=== PATIENT | female | born 1940 | race Caucasian/White ===

== ENCOUNTER 2016-11-03 14:16 | Inpatient (IN) | payer OTHER ==
[2016-11-03] MEDS ORDERED: HumuLIN R SUBCUT PRN (16:58)
[2016-11-03 17:31] LABS: BASOPHILS # (AUTO) 0.1 X10^3/uL (0.0-0.1); BASOPHILS % (AUTO) 0.9 % (0.2-1.0); EOSINOPHILS # (AUTO) 0.4 x10^3/uL (0.0-0.2); EOSINOPHILS % (AUTO) 4.2 % (0.9-2.9); HEMATOCRIT 37.3 % (36.0-47.0); HEMOGLOBIN 12.7 g/dL (12.0-16.0); LYMPHOCYTES # (AUTO) 2.2 X10^3/uL (1.3-2.9); LYMPHOCYTES % (AUTO) 22.7 % (21.0-51.0); MEAN CORPUSCULAR HEMOGLOBIN 30.1 pg (27.0-34.0); MEAN CORPUSCULAR HGB CONC 34.1 g/dL (33.0-35.0); MEAN CORPUSCULAR VOLUME 88.3 fL (80.0-100.0); MEAN PLATELET VOLUME 9.3 fL (7.4-11.0); MONOCYTES # (AUTO) 0.8 x10^3/uL (0.3-0.8); MONOCYTES % (AUTO) 8.1 % (0.0-13.0); NEUTROPHILS # (AUTO) 6.2 x10^3/uL (2.2-4.8); NEUTROPHILS % (AUTO) 64.1 % (42.0-75.0); PLATELET COUNT 223 X10^3/uL (150.0-450.0); RED BLOOD COUNT 4.23 X10^6/uL (3.5-5.4); RED CELL DISTRIBUTION WIDTH 13.4 % (11.6-16.5); WHITE BLOOD COUNT 9.7 X10^3/uL (3.6-10.0)
[2016-11-03 17:47] LABS: BILIRUBIN,URINE NEGATIVE (NEGATIVE); BLOOD/HEMOGLOBIN,URINE 1+ (NEGATIVE); GLUCOSE, URINE NEGATIVE (NEGATIVE); KETONES,URINE 1+ (NEGATIVE); LEUKOCYTE ESTERASE ,URINE 2+ (NEGATIVE); NITRITES,URINE NEGATIVE (NEGATIVE); PROTEIN,URINE 1+ (NEGATIVE); UROBILINOGEN,URINE NORMAL (NORMAL)
[2016-11-03 17:51] LABS: BLOOD UREA NITROGEN 41 mg/dL (7-18); CALCIUM 8.8 mg/dL (8.5-10.1); CARBON DIOXIDE 26.9 mmol/L (21-32); CHLORIDE 103 mmol/L (98-107); COR NA(FOR HYPERGLY) 139 mmol/L (136-145); CREATININE 1.33 mg/dL (0.55-1.02); GLUCOSE 168 mg/dL (65-99); SODIUM 137 mmol/L (136-145); TROPONIN I < 0.02 ng/mL (0-1.5); eGFR BLACK RACES 50 (>60); eGFR NON BLACK RACES 41 (>60)
[2016-11-03 17:55] LABS: ALANINE AMINOTRANSFERASE 24 Units/L (12-78); ALBUMIN 3.4 g/dL (3.4-5.0); ALKALINE PHOSPHATASE 75 Units/L (46-116); ASPARTATE AMINO TRANSFERASE 25 Units/L (15-37); CKMB % 2.1 % (<4); CREATINE KINASE 108 Units/L (26-192); CREATINE KINASE MB 2.3 ng/mL (0-4.0); TOTAL PROTEIN 7.4 g/dL (6.4-8.2)
[2016-11-03] MEDS: NS 1000 ML 1,000 ML IV SCH (18:02)
[2016-11-03] MEDS: PEPCID 20 MG IV PREMIX* 20 MG/50 ML BAG IV SCH (18:02)
[2016-11-03 18:04] LABS: APPEARANCE,URINE HAZY (CLEAR); BACTERIA,URINE TRACE /HPF (NEGATIVE); COLOR,URINE YELLOW (YELLOW); MUCUS,URINE FEW /HPF (NEGATIVE); RBC,URINE 0-2 /HPF (NEGATIVE); SQUAMOUS EPITHELIAL CELL,UR FEW /HPF (NEGATIVE)
[2016-11-03 18:10] VITALS: BMI 26.3
[2016-11-03 18:10] LABS: D DIMER 543 ng/mL (0-400)
--- NOTE | 2016-11-03 18:25 | DR.H&P ---
H&P - History & Physical for Day of: H&P Date: 11/03/16 - Chief Complaint Chief Complaint: SOB - Allergies Allergies/Adverse Reactions: Allergies Allergy/AdvReac Type Severity Reaction Status Date / Time MS No Known Drug Allergy Allergy Verified 11/03/16 17:00 [No Known Drug Allergy] - History of Present Illness History of Present Illness: patient is a 76-year-old white female direct admit from Dr. Monterroso's office with complaints of shortness of breath. Patient has complained of dyspnea on exertion for several months. Patient states she has seen Dr. Dan within the last 2 years and had a normal cardiac workup. Patient has a history of hypertension and diabetes which have been pretty well controlled with current medication. Patient states shortness of breath has not so severe she cannot walk to her car from her house without being out of breath. Patient had a chest x-ray several months ago which was a negative for acute findings. Plan to admit cardiac enzymes, EKG, CTA of the chest to rule out a PE. We will consult respiratory therapy - Past Medical History Past Medical History: CO, Hypertension, Diabetes - Past Surgical History Surgical History: Appendectomy, Hysterectomy, Ortho Surgery, Tonsillectomy - Family History Family Medical History: Diabetes Mellitus, Cancer, Coronary Artery Disease, Hypertension - Social History Does patient currently use any type of tobacco product: No Have you used tobacco products in the last 12 months: No Type of Tobacco Use: None Does any household member use tobacco: No Alcohol Use: None Drug Use: None - Review of Systems Constitutional: Weakness Eyes: No Symptoms Reported ENT: No Symptoms Reported Respiratory: Cough, Shortness of Breath, SOB with Excertion Cardiovascular: Other (CHEST PRESSURE WHEN GETTING SOB) Gastrointestinal: No Symptoms Reported Genitourinary: No Symptoms Reported Musculoskeletal: No Symptoms Reported Skin: No Symptoms Reported Neurological: No Symptoms Reported - Physical Exam Vital Signs: Temperature 98 F Pulse Rate [Left Radial] 98 Respiratory Rate 20 Blood Pressure [Left Arm] 123/60 Blood Pressure 157/86 O2 Sat by Pulse Oximetry 96 Oriented: Normal Eyes: Normal Ear: Normal Nose: Normal Throat: Normal Respiratory: RLL Diminished, LLL Diminished, ELIZABETH Exp. Wheeze, LML Exp. Wheeze Cardiovascular: Normal : Normal Auscultation: Bowel Sounds: Normal Palpation: Normal Tenderness: Normal Skin: Normal Musculoskeletal: Normal Mood Description: Calm Speech Pattern: Clear, Appropriate - Assessment/Plan (1) Shortness of breath Status: Acute Plan: plan to admit, EKG, d-dimer,cardiac enzymes, CTA of the chest to rule out a PE. admission labs: CBC CMP and chest x-ray. Sliding-scale insulin coverage , hold metformin due to IV dye, gentle IV hydration, repeat a.m. 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
--- NOTE | 2016-11-03 18:27 | RAD ---
HISTORY: Shortness of breath and dyspnea on exertion. Study: Portable chest. Comparison: Chest x-ray dated February 08, 2015. Findings: The trachea is midline. The cardiac silhouette is enlarged but unchanged. No obvious focal consoli dation, pleural effusion, or pneumothorax. The bony thorax is unremarkable. IMPRESSION: 1. No acute cardiopulmonary disease. Reported By:
[2016-11-03] MEDS: SNACK - Diabetic Appropriate PO SCH (22:25)
[2016-11-04 05:24] LABS: ALANINE AMINOTRANSFERASE 21 Units/L (12-78); ALKALINE PHOSPHATASE 64 Units/L (46-116); ASPARTATE AMINO TRANSFERASE 16 Units/L (15-37); BLOOD UREA NITROGEN 32 mg/dL (7-18); CALCIUM 8.3 mg/dL (8.5-10.1); CARBON DIOXIDE 30.6 mmol/L (21-32); CHLORIDE 107 mmol/L (98-107); COR CA(FOR HYPOALB) 9.1 mg/dL (8.5-10.1); CREATININE 1.03 mg/dL (0.55-1.02); GLUCOSE 55 mg/dL (65-99); SODIUM 143 mmol/L (136-145); TOTAL PROTEIN 6.7 g/dL (6.4-8.2); eGFR BLACK RACES > 60 (>60); eGFR NON BLACK RACES 55 (>60)
[2016-11-04] MEDS: NS 1000 ML 1,000 ML IV SCH ×3 (06:10→21:21)
[2016-11-04] MEDS: PEPCID 20 MG IV PREMIX* 20 MG/50 ML BAG IV SCH (08:14)
[2016-11-04] MEDS ORDERED: LOVENOX INJ 40 MG SYR SC SCH (10:00)
[2016-11-04] MEDS ORDERED: DUONEB 0.5 MG/3 MG NEB PRN (10:30)
--- NOTE | 2016-11-04 14:20 | NM ---
HISTORY: Shortness of breath and left-sided chest pain Study: Nuclear Medicine Ventilation Perfusion Study Comparison: None Technique: After the administration of 5.4 mCi of technetium 99m MAA followed by inhalation of 30.4 mCi of technetium 99m DTPA, anterior, posterior, and lateral perfusion and ventilation images were s ubmitted. Findings: There is a large perfusion deficit matched by ventilation in the right lower lobe posteriorly and la terally involving the superior and posterior basilar segments of the right lower lobe also portion o f the lateral segment. There is a smaller perfusion deficit also matched on the left in the left low er lobe posterior and lateral. Yesterday's chest x-ray showed grossly clear lungs.. IMPRESSION: 1. Abnormal scan with large right and smaller left matched ventilation and perfusion deficits indic ating and intermediate probability of pulmonary emboli. Reported By:
--- NOTE | 2016-11-04 19:53 | VAS ---
HISTORY: PE. Legs feel like they have 'Bands squeezing them'. Study: Bilateral lower extremity venous Doppler Comparison: None. TECHNIQUE: Real-time dynamic grayscale, color flow and complete spectral Doppler ultrasound examina tion of the major deep venous structures were obtained of both lower extremities. FINDINGS: Right lower extremity: Real-time examination shows no evidence of thrombus within the common femora l, superficial femoral, or popliteal veins. There is normal compressibility throughout. Color flow i maging shows normal venous blood flow within the major vessels. Doppler examination shows normal fior ous waveforms with appropriate respiratory variation. There is slightly diminished augmentation. Left lower extremity: Real-time examination shows no evidence of thrombus within the common femoral, superficial femoral, or popliteal veins. There is normal compressibility throughout. Color flow kady ging shows normal venous blood flow within the major vessels. Doppler examination shows normal venou s waveforms with appropriate respiratory variation. There is slightly diminished augmentation. IMPRESSION: 1. Normal bilateral lower extremity venous Doppler, without evidence of DVT. Reported By:
[2016-11-04] MEDS: LOVENOX INJ 80 MG SYR SC SCH (21:16)
[2016-11-04] MEDS: PHARMACY CONSULT - DOSE _____ XX SCH (21:16)
[2016-11-04] MEDS: SNACK - Diabetic Appropriate PO SCH (21:16)
[2016-11-05 06:29] LABS: BASOPHILS % (AUTO) 0.7 % (0.2-1.0); EOSINOPHILS # (AUTO) 0.6 x10^3/uL (0.0-0.2); EOSINOPHILS % (AUTO) 8.9 % (0.9-2.9); HEMATOCRIT 36.2 % (36.0-47.0); HEMOGLOBIN 12.3 g/dL (12.0-16.0); LYMPHOCYTES # (AUTO) 2.3 X10^3/uL (1.3-2.9); LYMPHOCYTES % (AUTO) 33.3 % (21.0-51.0); MEAN CORPUSCULAR HEMOGLOBIN 30.4 pg (27.0-34.0); MEAN CORPUSCULAR HGB CONC 33.9 g/dL (33.0-35.0); MEAN CORPUSCULAR VOLUME 89.5 fL (80.0-100.0); MEAN PLATELET VOLUME 9.7 fL (7.4-11.0); MONOCYTES # (AUTO) 0.8 x10^3/uL (0.3-0.8); MONOCYTES % (AUTO) 11.4 % (0.0-13.0); NEUTROPHILS # (AUTO) 3.2 x10^3/uL (2.2-4.8); NEUTROPHILS % (AUTO) 45.7 % (42.0-75.0); PLATELET COUNT 184 X10^3/uL (150.0-450.0); RED BLOOD COUNT 4.04 X10^6/uL (3.5-5.4); RED CELL DISTRIBUTION WIDTH 13.6 % (11.6-16.5)
[2016-11-05 06:38] LABS: ALANINE AMINOTRANSFERASE 22 Units/L (12-78); ALBUMIN 2.8 g/dL (3.4-5.0); ALKALINE PHOSPHATASE 60 Units/L (46-116); ASPARTATE AMINO TRANSFERASE 20 Units/L (15-37); BLOOD UREA NITROGEN 19 mg/dL (7-18); CALCIUM 8.2 mg/dL (8.5-10.1); CARBON DIOXIDE 29.1 mmol/L (21-32); CHLORIDE 108 mmol/L (98-107); COR CA(FOR HYPOALB) 9.2 mg/dL (8.5-10.1); CREATININE 0.95 mg/dL (0.55-1.02); GLUCOSE 85 mg/dL (65-99); SODIUM 142 mmol/L (136-145); TOTAL PROTEIN 6.5 g/dL (6.4-8.2); eGFR BLACK RACES > 60 (>60); eGFR NON BLACK RACES > 60 (>60)
[2016-11-05] MEDS: LOVENOX INJ 80 MG SYR SC SCH ×2 (08:42→21:31)
[2016-11-05] MEDS: PEPCID 20 MG IV PREMIX* 20 MG/50 ML BAG IV SCH (08:42)
[2016-11-05] MEDS ORDERED: GLUCOPHAGE ONE (21:23)
[2016-11-05] MEDS: GLUCOPHAGE PO SCH (21:34)
[2016-11-05] MEDS: PHARMACY CONSULT - DOSE _____ XX SCH (21:35)
[2016-11-05] MEDS: SNACK - Diabetic Appropriate PO SCH (21:35)
[2016-11-06] MEDS: NS 1000 ML 1,000 ML IV SCH ×2 (01:50→21:50)
[2016-11-06 06:33] LABS: BASOPHILS # (AUTO) 0.1 X10^3/uL (0.0-0.1); BASOPHILS % (AUTO) 0.9 % (0.2-1.0); EOSINOPHILS # (AUTO) 0.6 x10^3/uL (0.0-0.2); EOSINOPHILS % (AUTO) 8.7 % (0.9-2.9); HEMATOCRIT 35.6 % (36.0-47.0); LYMPHOCYTES # (AUTO) 1.8 X10^3/uL (1.3-2.9); LYMPHOCYTES % (AUTO) 27.5 % (21.0-51.0); MEAN CORPUSCULAR HGB CONC 33.6 g/dL (33.0-35.0); MEAN CORPUSCULAR VOLUME 89.2 fL (80.0-100.0); MEAN PLATELET VOLUME 9.3 fL (7.4-11.0); MONOCYTES # (AUTO) 0.7 x10^3/uL (0.3-0.8); NEUTROPHILS # (AUTO) 3.4 x10^3/uL (2.2-4.8); NEUTROPHILS % (AUTO) 51.9 % (42.0-75.0); PLATELET COUNT 169 X10^3/uL (150.0-450.0); RED BLOOD COUNT 3.99 X10^6/uL (3.5-5.4); RED CELL DISTRIBUTION WIDTH 13.4 % (11.6-16.5); WHITE BLOOD COUNT 6.5 X10^3/uL (3.6-10.0)
[2016-11-06 06:55] LABS: ALANINE AMINOTRANSFERASE 29 Units/L (12-78); ALBUMIN 2.8 g/dL (3.4-5.0); ALKALINE PHOSPHATASE 70 Units/L (46-116); ASPARTATE AMINO TRANSFERASE 24 Units/L (15-37); BLOOD UREA NITROGEN 17 mg/dL (7-18); CALCIUM 8.3 mg/dL (8.5-10.1); CARBON DIOXIDE 28.9 mmol/L (21-32); CHLORIDE 107 mmol/L (98-107); COR CA(FOR HYPOALB) 9.3 mg/dL (8.5-10.1); COR NA(FOR HYPERGLY) 141 mmol/L (136-145); GLUCOSE 134 mg/dL (65-99); SODIUM 140 mmol/L (136-145); TOTAL PROTEIN 6.6 g/dL (6.4-8.2); eGFR BLACK RACES > 60 (>60); eGFR NON BLACK RACES > 60 (>60)
[2016-11-06] MEDS: ASPIRIN EC 81 MG PO SCH (09:26)
[2016-11-06] MEDS: GLUCOPHAGE PO SCH (09:26)
[2016-11-06] MEDS: CARDIZEM CD 240 MG PO SCH (09:26)
[2016-11-06] MEDS: DIABETA PO SCH (09:26)
[2016-11-06] MEDS: ZyrTEC TAB 10 MG PO SCH (09:26)
[2016-11-06] MEDS: PEPCID 20 MG IV PREMIX* 20 MG/50 ML BAG IV SCH (09:27)
[2016-11-06] MEDS: LOVENOX INJ 80 MG SYR SC SCH (09:28)
[2016-11-06] MEDS: [UNRECOGNIZED DRUG - OTHER] PO SCH ×2 (09:33→10:48)
[2016-11-06] MEDS: SNACK - Diabetic Appropriate PO SCH (20:50)
[2016-11-06] MEDS ORDERED: MILK OF MAGNESIA PO SCH (21:00)
[2016-11-06] MEDS ORDERED: COLACE CAP 100 MG PO SCH (21:00)
[2016-11-06] MEDS ORDERED: LOVENOX INJ 80 MG SYR SC SCH (21:00)
[2016-11-06] MEDS: ELIQUIS PO SCH (21:53)
[2016-11-07 06:09] LABS: BASOPHILS % (AUTO) 0.4 % (0.2-1.0); EOSINOPHILS # (AUTO) 0.5 x10^3/uL (0.0-0.2); EOSINOPHILS % (AUTO) 8.9 % (0.9-2.9); HEMATOCRIT 33.9 % (36.0-47.0); HEMOGLOBIN 11.4 g/dL (12.0-16.0); LYMPHOCYTES # (AUTO) 1.8 X10^3/uL (1.3-2.9); LYMPHOCYTES % (AUTO) 29.4 % (21.0-51.0); MEAN CORPUSCULAR HEMOGLOBIN 30.4 pg (27.0-34.0); MEAN CORPUSCULAR HGB CONC 33.8 g/dL (33.0-35.0); MEAN CORPUSCULAR VOLUME 89.9 fL (80.0-100.0); MEAN PLATELET VOLUME 9.6 fL (7.4-11.0); MONOCYTES # (AUTO) 0.7 x10^3/uL (0.3-0.8); MONOCYTES % (AUTO) 10.8 % (0.0-13.0); NEUTROPHILS # (AUTO) 3.1 x10^3/uL (2.2-4.8); NEUTROPHILS % (AUTO) 50.5 % (42.0-75.0); PLATELET COUNT 167 X10^3/uL (150.0-450.0); RED BLOOD COUNT 3.77 X10^6/uL (3.5-5.4); RED CELL DISTRIBUTION WIDTH 13.5 % (11.6-16.5); WHITE BLOOD COUNT 6.2 X10^3/uL (3.6-10.0)
[2016-11-07] MEDS: NS 1000 ML 1,000 ML IV SCH (06:13)
[2016-11-07 06:38] LABS: ALANINE AMINOTRANSFERASE 49 Units/L (12-78); ALBUMIN 2.6 g/dL (3.4-5.0); ALKALINE PHOSPHATASE 89 Units/L (46-116); ASPARTATE AMINO TRANSFERASE 47 Units/L (15-37); BLOOD UREA NITROGEN 19 mg/dL (7-18); CALCIUM 8.4 mg/dL (8.5-10.1); CARBON DIOXIDE 28.4 mmol/L (21-32); CHLORIDE 108 mmol/L (98-107); COR CA(FOR HYPOALB) 9.5 mg/dL (8.5-10.1); COR NA(FOR HYPERGLY) 143 mmol/L (136-145); GLUCOSE 137 mg/dL (65-99); SODIUM 142 mmol/L (136-145); TOTAL PROTEIN 6.2 g/dL (6.4-8.2); eGFR BLACK RACES > 60 (>60); eGFR NON BLACK RACES > 60 (>60)
[2016-11-07] MEDS ORDERED: GLUCOPHAGE ONE (08:37)
[2016-11-07] MEDS: CARDIZEM CD 240 MG PO SCH (08:48)
[2016-11-07] MEDS: ZyrTEC TAB 10 MG PO SCH (08:48)
[2016-11-07] MEDS: GLUCOPHAGE PO SCH (08:48)
[2016-11-07] MEDS: ELIQUIS PO SCH (08:48)
[2016-11-07] MEDS: ASPIRIN EC 81 MG PO SCH (08:49)
[2016-11-07] MEDS: PEPCID 20 MG IV PREMIX* 20 MG/50 ML BAG IV SCH (08:49)
[2016-11-07] MEDS: [UNRECOGNIZED DRUG - OTHER] PO SCH (08:49)
[2016-11-07] MEDS: DIABETA PO SCH (08:49)
[2016-11-07 15:26] LABS: ABG ALLEN TEST POS; ABG HCO3 30.2 mmol/L (22-26)
[2016-11-07 16:12] VITALS: BP 110/52
== END 2016-11-07 16:43 | disposition home or self-care (01) | DRG 204 ==
LOC: MED/SURG 14:16 → UNDOADMOB 14:16 → MED/SURG 16:05 → OBSVTOIN 11-04 14:20
PROVIDERS: ADMIT Internal Medicine; ATTEND Internal Medicine
DX: R06.02 Shortness of breath (principal); I26.99 Other pulmonary embolism without acute cor pulmonale; R06.09 Other forms of dyspnea; E11.65 Type 2 diabetes mellitus with hyperglycemia; R07.89 Other chest pain; Z79.01 Long term (current) use of anticoagulants
CPT/HCPCS: 36415; 36600; 71010; 78582; 80053; 81001; 82550; 82553; 82803; 84484; 85025; 85378; 93005; 93010; 93970; 94760; A4222; S0028; G0378; J1650; J7620

== ENCOUNTER → 2017-02-19 | Outpatient (CLI) | payer OTHER ==
[~2017-02-19] MED LIST: NS 100 ML IV 100 ML IV ONE
[2017-02-19 10:59] LABS: CREATININE 1.04 mg/dL (0.55-1.02)
--- NOTE | 2017-02-19 12:55 | CT ---
CT CHEST WITH IV CONTRAST - PE PROTOCOL HISTORY: Shortness of breath. History of pulmonary embolism. Comparison: V/Q scan 11/04/2016 Technique: Non gated axial images of the chest were obtained with intravenous contrast according to [facility]. MIPS were reconstructed. Dose reduction techniques including Automated Ex posure Control (AEC) and adjustment of mA and kV were utlized. Findings: No evidence of a pulmonary embolism to the level of the segmental pulmonary arteries. The heart is normal in size. No pericardial effusion. Severe coronary artery calcification. Aortic ro ot measures 4 cm. No suspicious mediastinal or axillary lymph nodes. No focal consolidations, pleural effusions or pneumothorax. Airways are patent. No suspicious pulmona ry nodules or masses. Limited images of the upper abdomen are unremarkable. No aggressive osseous lesions. IMPRESSION: 1. No evidence of pulmonary embolism. 2. Aneurysmal dilatation of the ascending aorta. 3. Severe coronary artery calcification. Reported By:
== END ==
LOC: RAD 10:23
PROVIDERS: ATTEND Nurse Practitioner Family
DX: I26.99 Other pulmonary embolism without acute cor pulmonale (principal)
CPT/HCPCS: 36415; 71275; 82565; 84520; A4222

== ENCOUNTER 2019-11-30 10:12 | Inpatient (IN) ==
[2019-11-30] MEDS ORDERED: LR 1000 ML IV 1,000 ML IV ONE (11:27)
[2019-11-30] MEDS ORDERED: ANCEF 1 GRAM IV PREMIX* 2 G/100 ML BAG IV ONE (11:28)
[2019-11-30] MEDS ORDERED: VERSED ONE (12:00)
[2019-11-30] MEDS ORDERED: DIPRIVAN VIAL ONE (12:00)
[2019-11-30] MEDS ORDERED: POLYMYXIN B SULFATE ONE (12:37)
[2019-11-30] MEDS ORDERED: BETADINE SOLN ONE (13:13)
[2019-11-30] MEDS ORDERED: XYLOCAINE 1 % (PLAIN) ONE (13:30)
[2019-11-30] MEDS ORDERED: NEOSPORIN OINT ONE (13:31)
[2019-11-30] MEDS: NORCO 5/325 MG TAB PO PRN (17:53)
[2019-11-30] MEDS: DIABETA PO SCH (17:53)
[2019-11-30] MEDS ORDERED: NEURONTIN CAP 300 MG PO PRN (17:54)
[2019-11-30] MEDS: SNACK - Diabetic Appropriate PO SCH (21:10)
[2019-11-30] MEDS: ROCEPHIN VIAL 1 GRAM 1 G in NS 100 ML IV + SPIKE MINIBAG* 100 ML IV SCH (21:10)
[2019-12-01] MEDS ORDERED: GLUCOPHAGE ONE (06:02)
[2019-12-01] MEDS: DIABETA PO SCH ×2 (06:08→17:12)
[2019-12-01] MEDS: GLUCOPHAGE PO SCH (06:08)
[2019-12-01 07:58] LABS: BASOPHILS # (AUTO) 0.1 X10^3/uL (0.0-0.1); BASOPHILS % (AUTO) 0.6 % (0.2-1.0); EOSINOPHILS # (AUTO) 0.6 x10^3/uL (0.0-0.2); EOSINOPHILS % (AUTO) 6.9 % (0.9-2.9); HEMATOCRIT 36.7 % (36.0-47.0); HEMOGLOBIN 12.5 g/dL (12.0-16.0); LYMPHOCYTES # (AUTO) 1.8 X10^3/uL (1.3-2.9); LYMPHOCYTES % (AUTO) 21.9 % (21.0-51.0); MEAN CORPUSCULAR HEMOGLOBIN 31.1 pg (27.0-34.0); MEAN CORPUSCULAR HGB CONC 34.1 g/dL (33.0-35.0); MEAN CORPUSCULAR VOLUME 91.1 fL (80.0-100.0); MEAN PLATELET VOLUME 8.4 fL (7.4-11.0); MONOCYTES # (AUTO) 0.7 x10^3/uL (0.3-0.8); MONOCYTES % (AUTO) 8.4 % (0.0-13.0); NEUTROPHILS # (AUTO) 5.1 x10^3/uL (2.2-4.8); NEUTROPHILS % (AUTO) 62.2 % (42.0-75.0); PLATELET COUNT 235 X10^3/uL (150.0-450.0); RED BLOOD COUNT 4.02 X10^6/uL (3.5-5.4); RED CELL DISTRIBUTION WIDTH 13.4 % (11.6-16.5); WHITE BLOOD COUNT 8.2 X10^3/uL (3.6-10.0)
[2019-12-01 08:07] LABS: ALANINE AMINOTRANSFERASE 20 Units/L (12-78); ALBUMIN 2.6 g/dL (3.4-5.0); ALKALINE PHOSPHATASE 80 Units/L (46-116); ASPARTATE AMINO TRANSFERASE 11 Units/L (15-37); BLOOD UREA NITROGEN 17 mg/dL (7-18); CALCIUM 8.3 mg/dL (8.5-10.1); CARBON DIOXIDE 29.7 mmol/L (21-32); CHLORIDE 105 mmol/L (98-107); COR CA(FOR HYPOALB) 9.4 mg/dL (8.5-10.1); COR NA(FOR HYPERGLY) 141 mmol/L (136-145); CREATININE 0.97 mg/dL (0.55-1.02); SODIUM 141 mmol/L (136-145); TOTAL PROTEIN 6.6 g/dL (6.4-8.2); eGFR NON BLACK RACES 59 (>60)
[2019-12-01] MEDS: CARDIZEM CD 180 MG 24-HR PO SCH (09:30)
[2019-12-01] MEDS: NORCO 5/325 MG TAB PO PRN ×2 (09:30→19:33)
[2019-12-01] MEDS: BACTROBAN CREAM TOP SCH (09:30)
[2019-12-01] MEDS: HYDROGEN PEROXIDE 3% EXT SCH (09:30)
[2019-12-01] MEDS: ROCEPHIN VIAL 1 GRAM 1 G in NS 100 ML IV + SPIKE MINIBAG* 100 ML IV SCH ×2 (09:30→20:51)
[2019-12-01] MEDS ORDERED: NS IRRIGATION* 500 ML IR ONE (09:55)
[2019-12-01] MEDS ORDERED: BACTROBAN TOPICAL OINT ONE (10:31)
[2019-12-01] MEDS ORDERED: STERILE WATER IRRIGATION IR ONE (10:42)
--- NOTE | 2019-12-01 12:33 | DR.PROGNOT ---
Hospital Progress Notes - Progress Note for Day of: Progress Note Date: 12/01/19 - Chief Complaint Chief Complaint: doing better today . still c/o pain Lt hand with moderate drainage . dressing was changed and packing was removed . normal ROM Lt middle finger . cellulitis is subsiding .with open sinus tract at the base of the middle finger . - Past Medical Family Social History Past Med/Fam/Surg Hx: No changes since H&P Allergies: Allergies No Known Drug Allergies Allergy (Verified 11/25/19 20:13) - Review Of Systems ROS: No change since H&P - Vital Signs Vital Signs: Temperature 97.6 F Pulse Rate [Left Brachial] 91 Pulse Rate 84 Respiratory Rate 18 Blood Pressure [Right Arm] 180/86 Blood Pressure [Left Arm] 110/52 Blood Pressure 164/86 O2 Sat by Pulse Oximetry 94 - Physical Exam Oriented: Normal Eyes: Normal Ear: Normal Nose: Normal Respiratory: Normal Cardiovascular: Normal : Normal GI:Palpation: Normal GI: Tenderness: Normal Skin: Other (abscess at the base of the middle finger with sinus tract ( dorsal and palmar aspect ) .and cellulitis Lt hand ) Mood Description: Calm Speech Pattern: Clear, Appropriate - Laboratory and Diagnostics Result Diagrams: 12/01/19 07:30 12/01/19 07:30 Labs: 11/30/19 13:10 Hand - Left Gram Stain - Final 11/30/19 13:10 Hand - Left Wound Culture - Preliminary Laboratory WBC 8.2 X10^3/uL (3.6-10.0) 12/01/19 07:30 RBC 4.02 X10^6/uL (3.5-5.4) 12/01/19 07:30 Hgb 12.5 g/dL (12.0-16.0) 12/01/19 07:30 Hct 36.7 % (36.0-47.0) 12/01/19 07:30 MCV 91.1 fL (80.0-100.0) 12/01/19 07:30 MCH 31.1 pg (27.0-34.0) 12/01/19 07:30 MCHC 34.1 g/dL (33.0-35.0) 12/01/19 07:30 RDW 13.4 % (11.6-16.5) 12/01/19 07:30 Plt Count 235 X10^3/uL (150.0-450.0) 12/01/19 07:30 MPV 8.4 fL (7.4-11.0) 12/01/19 07:30 Neut % (Auto) 62.2 % (42.0-75.0) 12/01/19 07:30 Lymph % (Auto) 21.9 % (21.0-51.0) 12/01/19 07:30 [place] % (Auto) 8.4 % (0.0-13.0) 12/01/19 07:30 Eos % (Auto) 6.9 % (0.9-2.9) H 12/01/19 07:30 Baso % (Auto) 0.6 % (0.2-1.0) 12/01/19 07:30 Neut # (Auto) 5.1 x10^3/uL (2.2-4.8) H 12/01/19 07:30 Lymph # (Auto) 1.8 X10^3/uL (1.3-2.9) 12/01/19 07:30 [place] # (Auto) 0.7 x10^3/uL (0.3-0.8) 12/01/19 07:30 Eos # (Auto) 0.6 x10^3/uL (0.0-0.2) H 12/01/19 07:30 Baso # (Auto) 0.1 X10^3/uL (0.0-0.1) 12/01/19 07:30 Absolute Nucleated RBC 0.0 /100WBC 12/01/19 07:30 Sodium 141 mmol/L (136-145) 12/01/19 07:30 Corrected Sodium 141 mmol/L (136-145) 12/01/19 07:30 Potassium 4.2 mmol/L (3.5-5.1) 12/01/19 07:30 Chloride 105 mmol/L (98-107) 12/01/19 07:30 Carbon Dioxide 29.7 mmol/L (21-32) 12/01/19 07:30 BUN 17 mg/dL (7-18) 12/01/19 07:30 Creatinine 0.97 mg/dL (0.55-1.02) 12/01/19 07:30 Est GFR (MDRD) Af Amer > 60 (>60) 12/01/19 07:30 Est GFR (MDRD) Non-Af 59 (>60) 12/01/19 07:30 Glucose 116 mg/dL (65-99) H 12/01/19 07:30 POC Glucose (mg/dL) 110 mg/dL (65-99) H 12/01/19 05:28 Calcium 8.3 mg/dL (8.5-10.1) L 12/01/19 07:30 Corrected Calcium 9.4 mg/dL (8.5-10.1) 12/01/19 07:30 Total Bilirubin 0.30 mg/dL (0.2-1.0) 12/01/19 07:30 AST 11 Units/L (15-37) L 12/01/19 07:30 ALT 20 Units/L (12-78) 12/01/19 07:30 Alkaline Phosphatase 80 Units/L (46-116) 12/01/19 07:30 Total Protein 6.6 g/dL (6.4-8.2) 12/01/19 07:30 Albumin 2.6 g/dL (3.4-5.0) L 12/01/19 07:30 Globulin 4.0 g/dL (2.5-4.5) 12/01/19 07:30 Albumin/Globulin Ratio 0.7 Ratio (1.1-2.1) L 12/01/19 07:30 Tissue Pathology To follow 11/30/19 13:10 - Assessment and Plan 1: abscess Lt hand , ( middle finger ). cellulitis Lt hand . type ll DM . arthritis . same local care with soaking in (H2O2 and water ). remove packing . hand elevation . same IV Vancomycin .. ( awaiting C&S ). Diabetic control .
[2019-12-01 14:43] VITALS: BMI 35.4
[2019-12-01] MEDS: SNACK - Diabetic Appropriate PO SCH (21:02)
[2019-12-02] MEDS ORDERED: GLUCOPHAGE ONE (06:19)
[2019-12-02] MEDS: DIABETA PO SCH ×2 (06:25→17:52)
[2019-12-02] MEDS: GLUCOPHAGE PO SCH (06:25)
[2019-12-02] MEDS: BACTROBAN CREAM TOP SCH (09:36)
[2019-12-02] MEDS: CARDIZEM CD 180 MG 24-HR PO SCH (09:36)
[2019-12-02] MEDS: HYDROGEN PEROXIDE 3% EXT SCH (09:36)
[2019-12-02] MEDS: LOVENOX INJ 40 MG SYR SC SCH (09:37)
[2019-12-02] MEDS: ROCEPHIN VIAL 1 GRAM 1 G in NS 100 ML IV + SPIKE MINIBAG* 100 ML IV SCH ×2 (09:37→20:06)
[2019-12-02] MEDS ORDERED: STERILE WATER IRRIGATION IR ONE (15:56)
[2019-12-02] MEDS ORDERED: NS 250 ML IV 250 ML IV ONE (16:12)
[2019-12-02] MEDS: NORCO 5/325 MG TAB PO PRN (20:11)
[2019-12-02] MEDS: SNACK - Diabetic Appropriate PO SCH (21:53)
[2019-12-03] MEDS ORDERED: GLUCOPHAGE ONE (05:00)
[2019-12-03] MEDS: GLUCOPHAGE PO SCH (06:06)
[2019-12-03] MEDS: DIABETA PO SCH (06:07)
[2019-12-03 06:53] LABS: BASOPHILS % (AUTO) 0.3 % (0.2-1.0); EOSINOPHILS # (AUTO) 0.6 x10^3/uL (0.0-0.2); EOSINOPHILS % (AUTO) 6.9 % (0.9-2.9); HEMATOCRIT 37.5 % (36.0-47.0); HEMOGLOBIN 12.4 g/dL (12.0-16.0); LYMPHOCYTES % (AUTO) 23.5 % (21.0-51.0); MEAN CORPUSCULAR HEMOGLOBIN 30.4 pg (27.0-34.0); MEAN CORPUSCULAR HGB CONC 32.9 g/dL (33.0-35.0); MEAN CORPUSCULAR VOLUME 92.3 fL (80.0-100.0); MEAN PLATELET VOLUME 9.1 fL (7.4-11.0); MONOCYTES # (AUTO) 0.7 x10^3/uL (0.3-0.8); MONOCYTES % (AUTO) 8.6 % (0.0-13.0); NEUTROPHILS # (AUTO) 5.2 x10^3/uL (2.2-4.8); NEUTROPHILS % (AUTO) 60.7 % (42.0-75.0); PLATELET COUNT 247 X10^3/uL (150.0-450.0); RED BLOOD COUNT 4.07 X10^6/uL (3.5-5.4); RED CELL DISTRIBUTION WIDTH 13.3 % (11.6-16.5); WHITE BLOOD COUNT 8.6 X10^3/uL (3.6-10.0)
[2019-12-03 07:07] LABS: ALANINE AMINOTRANSFERASE 18 Units/L (12-78); ALBUMIN 2.6 g/dL (3.4-5.0); ALKALINE PHOSPHATASE 73 Units/L (46-116); ASPARTATE AMINO TRANSFERASE 12 Units/L (15-37); BLOOD UREA NITROGEN 13 mg/dL (7-18); CALCIUM 8.2 mg/dL (8.5-10.1); CARBON DIOXIDE 28.3 mmol/L (21-32); CHLORIDE 105 mmol/L (98-107); COR CA(FOR HYPOALB) 9.3 mg/dL (8.5-10.1); COR NA(FOR HYPERGLY) 143 mmol/L (136-145); CREATININE 0.94 mg/dL (0.55-1.02); SODIUM 141 mmol/L (136-145); TOTAL PROTEIN 6.4 g/dL (6.4-8.2); eGFR NON BLACK RACES > 60 (>60)
[2019-12-03 08:31] VITALS: BP 143/77
[2019-12-03] MEDS: ROCEPHIN VIAL 1 GRAM 1 G in NS 100 ML IV + SPIKE MINIBAG* 100 ML IV SCH (09:20)
[2019-12-03] MEDS: CARDIZEM CD 180 MG 24-HR PO SCH (09:21)
[2019-12-03] MEDS: LOVENOX INJ 40 MG SYR SC SCH (09:21)
[2019-12-03] MEDS: HYDROGEN PEROXIDE 3% EXT SCH (09:30)
[2019-12-03] MEDS: BACTROBAN CREAM TOP SCH (10:00)
== END 2019-12-03 11:07 | disposition home or self-care (01) | DRG 603 ==
LOC: SURG1 10:12 → MED/SURG 14:15
PROVIDERS: ADMIT Internal Medicine; ATTEND Surgery
DX: I25.10 Atherosclerotic heart disease of native coronary artery without angina pectoris; E11.65 Type 2 diabetes mellitus with hyperglycemia; L02.512 Cutaneous abscess of left hand; M13.89 Other specified arthritis, multiple sites; I10 Essential (primary) hypertension; J44.9 Chronic obstructive pulmonary disease, unspecified; L03.114 Cellulitis of left upper limb; B95.62 Methicillin resistant Staphylococcus aureus infection as the cause of diseases classified elsewhere

== ENCOUNTER 2021-02-26 21:10 | Inpatient (IN) ==
[2021-02-26 21:28] VITALS: BMI 26.1
[2021-02-26] MEDS ORDERED: LASIX IVP STA (21:34)
[2021-02-26] MEDS ORDERED: LASIX ONE (21:35)
--- NOTE | 2021-02-26 21:40 | DR.SOBA ---
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 2 HRS AGO AND HAS PROGRESSIVELY GOTTEN WORSE. COVID-19 Coronavirus risk:travel/contact w/high risk person: No Has patient experienced Coronavirus symptoms: Yes Coronavirus symptoms experienced: Shortness of Breath Source History Provided: Patient Mode of Arrival Mode of Arrival: Ambulatory Timing Onset of Chief Complaint: 02/26/21 PMH PMH Past Medical History: Yes Past Medical History: Coronary Artery Disease, Diabetes, Hypertension and PR Past Medical History Comment: AORTIC ANEURYSM Past Surgical History: Yes Surgical History: Appendectomy, Hysterectomy and Tonsillectomy Family History History of Family Medical Conditions: Yes Family Medical History: PR, Heart Failure and Hypertension Social History Alcohol Use: None Do you use any recreational Drugs:: No Lives Where: Home Travel Risk Coronavirus risk:travel/contact w/high risk person: No Has patient experienced Coronavirus symptoms: Yes Coronavirus symptoms experienced: Shortness of Breath Infectious screening Have you traveled outside the country in the last 6 months?: No Isolation: Droplet ROS Review of Systems Constitutional: No Symptoms Reported Eyes: No Symptoms Reported ENTM: No Symptoms Reported Cardiovascular: No Symptoms Reported Gastrointestinal/Abdominal: No Symptoms Reported Genitourinary: No Symptoms Reported Neurological: No Symptoms Reported Integumentary: No Symptoms Reported Hematologic/Lymphatic: No Symptoms Reported Endocrine: No Symptoms Reported Psychiatric: No Symptoms Reported PE Vital Signs Vitals: Temperature 97.5 F Pulse Rate 128 Respiratory Rate 22 Blood Pressure [Right Arm] 143/77 Blood Pressure 107/56 O2 Sat by Pulse Oximetry 94 General Limitations: No Limitations General Appearance: Alert and In No Apparent Distress Head Head Exam: Normal Inspection Eyes Eye exam: Normal Appearance ENT ENT Exam: Normal Exam Neck Neck Exam: Normal Inspection Chest Chest Inspection: Normal Inspection Respiratory Respiratory Exam: Bilateral: Wheezing and Bilateral: Rhonchi (mild rt greater than lt base) Cardiovascular Cardiovascular Exam: Regular Rate and Tachycardia Abdominal Exam Abdominal Exam: Normal Inspection, Normal Bowel Sounds and Soft Extremities Extremities Exam: Normal Inspection Back Back Exam: Normal Inspection Neurologic Neurological Exam: Alert and Oriented X3 Psychiatric Psychiatric Exam: Normal Affect and Normal Mood Skin Skin Exam: Warm, Dry, Intact and Normal Color COURSE Reevaluation 1st: Unchanged 2nd: Unchanged (sitting on side of bed breathing hard without oxygen after going to bathroom) Consultation Call Returned: 07:00 (Dr Booth accepts admission.) Critical Care Notes Total Time (mins): 30 Critical Diagnosis: sepsis, bilateral pneu, arf, hypoxia Critical Interventions: diuretics, duoneb, review of tests with further testing to determine cause of hypoxia when pt did not respond initially, multiple discussions with daughter and pt while attempting to get symptoms under control; discussion of admission with review of test results with Dr Booth ROR Labs Reviewed Laboratory Results Reviewed?: Yes Result Diagrams: 02/26/21 21:42 02/26/21 21:42 Laboratory: WBC 11.0 X10^3/uL (3.6-10.0) H 02/26/21 21:42 RBC 4.41 X10^6/uL (3.5-5.4) 02/26/21 21:42 Hgb 13.6 g/dL (12.0-16.0) 02/26/21 21:42 Hct 40.3 % (36.0-47.0) 02/26/21 21:42 MCV 91.4 fL (80.0-100.0) 02/26/21 21:42 MCH 30.9 pg (27.0-34.0) 02/26/21 21:42 MCHC 33.9 g/dL (33.0-35.0) 02/26/21 21:42 RDW 13.9 % (11.6-16.5) 02/26/21 21:42 Plt Count 195 X10^3/uL (150.0-450.0) 02/26/21 21:42 MPV 9.4 fL (7.4-11.0) 02/26/21 21:42 Neut % (Auto) 59.9 % (42.0-75.0) 02/26/21 21:42 Lymph % (Auto) 22.5 % (21.0-51.0) 02/26/21 21:42 [place] % (Auto) 13.1 % (0.0-13.0) H 02/26/21 21:42 Eos % (Auto) 4.1 % (0.9-2.9) H 02/26/21 21:42 Baso % (Auto) 0.4 % (0.2-1.0) 02/26/21 21:42 Neut # (Auto) 6.6 x10^3/uL (2.2-4.8) H 02/26/21 21:42 Lymph # (Auto) 2.5 X10^3/uL (1.3-2.9) 02/26/21 21:42 [place] # (Auto) 1.4 x10^3/uL (0.3-0.8) H 02/26/21 21:42 Eos # (Auto) 0.5 x10^3/uL (0.0-0.2) H 02/26/21 21:42 Baso # (Auto) 0.0 X10^3/uL (0.0-0.1) 02/26/21 21:42 Absolute Nucleated RBC 0.0 /100WBC 02/26/21 21:42 Sample Site Rradial 02/26/21 21:54 ABG pH 7.390 (7.35-7.45) 02/26/21 21:54 ABG pCO2 44.0 mmHg (35.0-45.0) 02/26/21 21:54 ABG pO2 105.0 mmHg (80.0-100.0) H 02/26/21 21:54 ABG HCO3 26.6 mmol/L (22-26) H 02/26/21 21:54 ABG O2 Saturation 98.0 % (90-100) 02/26/21 21:54 ABG Base Excess 1.3 mmol/L (-2.0-2.0) 02/26/21 21:54 Edgar Test Positive 02/26/21 21:54 A-a Gradient 40.0 mmHg 02/26/21 21:54 FiO2 28.0 02/26/21 21:54 Blood Gas Comments Pt tolerated well 02/26/21 21:54 Sodium 133 mmol/L (136-145) L 02/26/21 21:42 Corrected Sodium 136 mmol/L (136-145) 02/26/21 21:42 Potassium 4.1 mmol/L (3.5-5.1) 02/26/21 21:42 Chloride 100 mmol/L (98-107) 02/26/21 21:42 Carbon Dioxide 27.3 mmol/L (21-32) 02/26/21 21:42 BUN 23 mg/dL (7-18) H 02/26/21 21:42 Creatinine 1.19 mg/dL (0.55-1.02) H 02/26/21 21:42 Est GFR (MDRD) Af Amer 56 (>60) L 02/26/21 21:42 Est GFR (MDRD) Non-Af 46 (>60) L 02/26/21 21:42 Glucose 205 mg/dL (65-99) H 02/26/21 21:42 Calcium 8.2 mg/dL (8.5-10.1) L 02/26/21 21:42 Corrected Calcium TNP 02/26/21 21:42 Magnesium 2.3 mg/dL (1.7-2.9) 02/26/21 21:42 Total Bilirubin 0.50 mg/dL (0.2-1.0) 02/26/21 21:42 AST 34 Units/L (15-37) 02/26/21 21:42 ALT 47 Units/L (12-78) 02/26/21 21:42 Alkaline Phosphatase 119 Units/L (46-116) H 02/26/21 21:42 Creatine Kinase 86 Units/L (26-192) 02/26/21 21:42 CK-MB (CK-2) 2.7 ng/mL (0-4.0) 02/26/21 21:42 CK/CKMB % Calc 3.1 % (<4) 02/26/21 21:42 Troponin I < 0.02 ng/mL (0-1.5) 02/26/21 21:42 B-Natriuretic Peptide 338 pg/mL (0-79) H 02/26/21 21:42 Total Protein 7.2 g/dL (6.4-8.2) 02/26/21 21:42 Albumin 3.4 g/dL (3.4-5.0) 02/26/21 21:42 Globulin 3.8 g/dL (2.5-4.5) 02/26/21 21:42 Albumin/Globulin Ratio 0.9 Ratio (1.1-2.1) L 02/26/21 21:42 SARS-CoV-2 (PCR) Negative (NEGATIVE) 02/27/21 00:17 Influenza Type A (PCR) Negative (NEGATIVE) 02/27/21 00:17 Influenza Type B (PCR) Negative (NEGATIVE) 02/27/21 00:17 RSV (PCR) Negative (NEGATIVE) 02/27/21 00:17 Other Results Comments: pneu with leukocytosis, ARF, tachycardia and tachypnea meeting sepsis criteria XRAY XRAY Interpreted by: Radiologist X-ray Results: pcxr: Stable cardiomegaly is noted. chest ct: Conglomeration of nodules in a tree-in-bud like distribution is seen in the bilateral mid and lower lung zones. This is worrisome for infectious process. Opioid Opioid Risk Tool Age (Graham box if 16-45): No History of Preadolescent Sexual Abuse: No Total: 0 Total Score Risk Category: Low Risk Copyright: [facility] predicting aberrant behaviors Diagnosis Discharge Problem: Hypoxia Bilateral pneumonia Qualifiers: Pneumonia type: due to unspecified organism Lung location: lower lobe of lung Qualified Code(s): J18.9 - Pneumonia, unspecified organism Sepsis Qualifiers: Sepsis type: sepsis due to unspecified organism Sepsis acute organ dysfunction status: with acute organ dysfunction Severe sepsis acute organ dysfunction type: acute renal failure Acute renal failure type: unspecified Severe sepsis shock status: without septic shock Qualified Code(s): A41.9 - Sepsis, unspecified organism Acute renal failure (ARF) Qualifiers: Acute renal failure type: unspecified Qualified Code(s): N17.9 - Acute kidney failure, unspecified Instructions Forms: [facility] Social Distancing
[2021-02-26 21:53] LABS: BASOPHILS % (AUTO) 0.4 % (0.2-1.0); EOSINOPHILS # (AUTO) 0.5 x10^3/uL (0.0-0.2); EOSINOPHILS % (AUTO) 4.1 % (0.9-2.9); HEMATOCRIT 40.3 % (36.0-47.0); HEMOGLOBIN 13.6 g/dL (12.0-16.0); LYMPHOCYTES # (AUTO) 2.5 X10^3/uL (1.3-2.9); LYMPHOCYTES % (AUTO) 22.5 % (21.0-51.0); MEAN CORPUSCULAR HEMOGLOBIN 30.9 pg (27.0-34.0); MEAN CORPUSCULAR HGB CONC 33.9 g/dL (33.0-35.0); MEAN CORPUSCULAR VOLUME 91.4 fL (80.0-100.0); MEAN PLATELET VOLUME 9.4 fL (7.4-11.0); MONOCYTES # (AUTO) 1.4 x10^3/uL (0.3-0.8); MONOCYTES % (AUTO) 13.1 % (0.0-13.0); NEUTROPHILS # (AUTO) 6.6 x10^3/uL (2.2-4.8); NEUTROPHILS % (AUTO) 59.9 % (42.0-75.0); PLATELET COUNT 195 X10^3/uL (150.0-450.0); RED BLOOD COUNT 4.41 X10^6/uL (3.5-5.4); RED CELL DISTRIBUTION WIDTH 13.9 % (11.6-16.5)
[2021-02-26 22:05] LABS: ABG BASE EXCESS 1.3 mmol/L (-2.0-2.0); ABG HCO3 26.6 mmol/L (22-26)
[2021-02-26 22:07] LABS: ABG ALLEN TEST POSITIVE
[2021-02-26 22:24] LABS: ALANINE AMINOTRANSFERASE 47 Units/L (12-78); ALBUMIN 3.4 g/dL (3.4-5.0); ALKALINE PHOSPHATASE 119 Units/L (46-116); ASPARTATE AMINO TRANSFERASE 34 Units/L (15-37); BLOOD UREA NITROGEN 23 mg/dL (7-18); CALCIUM 8.2 mg/dL (8.5-10.1); CARBON DIOXIDE 27.3 mmol/L (21-32); CHLORIDE 100 mmol/L (98-107); CKMB % 3.1 % (<4); COR NA(FOR HYPERGLY) 136 mmol/L (136-145); CREATINE KINASE 86 Units/L (26-192); CREATINE KINASE MB 2.7 ng/mL (0-4.0); CREATININE 1.19 mg/dL (0.55-1.02); MAGNESIUM 2.3 mg/dL (1.7-2.9); SODIUM 133 mmol/L (136-145); TOTAL PROTEIN 7.2 g/dL (6.4-8.2); TROPONIN I < 0.02 ng/mL (0-1.5); eGFR NON BLACK RACES 46 (>60)
--- NOTE | 2021-02-26 22:45 | RAD ---
STUDY: FRONTAL VIEW CHESTCOMPARISON: November 29, 2019HISTORY: PT AMBULATORY IN ER WITH C/O SOB THAT STARTED APPROX. 2 HRS AGO AND HAS PROGRESSIVELY GOTTEN WORSE.FINDINGS:No focal consolidation is seen.The heart size is enlarged but stable from prior study and without radiographic evidence of pulmonary edema.The mediastinum is unremarkable.There is no evidence of pleural effusion or gross pneumothorax.The trachea is midline.IMPRESSION:Stable cardiomegaly is noted.Electronically signed by: Ayaan Donis (Feb 26, 2021 22:42:50)
[2021-02-27] MEDS ORDERED: DUONEB 0.5 MG/3 MG (3 mL) NEB ONE (00:12)
--- NOTE | 2021-02-27 02:51 | CT ---
STUDY: CTA CHEST WITH IV CONTRASTCOMPARISON: NoneTECHNIQUE: axial images were acquired of the chest with IV contrast for a CT angiogram. Coronal and sagittal images were provided. All images were reviewed in a variety of windows and levels. 3D 8 mm thick MIPS images were provided.RADIATION REDUCTION TECHNIQUE: Automated exposure control, Adjustment of the mA and/or kV according to patient size, or iterative reconstruction techniques were used. 8 mm thick axial MIPS images were provided.HISTORY: SOBFINDINGS:CHEST:THYROID GLANDS: The thyroid gland is unremarkable.HEART AND VESSELS: The heart size is within normal limits.There is no evidence of pericardial effusion. Thoracic aorta is normal size without evidence of an aneurysm or dissection.Main pulmonary artery size is within normal limits. There are no filling defect seen within the visualized pulmonary arteries to suggest a pulmonary embolism.LYMPH NODES: There is no evidence of axillary, mediastinal, or hilar lymphadenopathy.AIRWAY: The trachea and mainstem bronchi are patent.No intraluminal lesions are seen.LUNGS: There is a conglomeration of nodules present in the bilateral mid and left lower lung zone which predominantly are distributed in a tree-in-bud like pattern. This may represent an infectious process. No consolidation, pleural effusion, or pneumothorax is seen.ESOPHAGUS: The esophagus is grossly unremarkable.BONES: The visualized bones demonstrate degenerative changes. There are no concerning lytic or blastic lesions identified.UPPER ABDOMINAL STRUCTURES: The visualized upper abdominal structures are unremarkable.IMPRESSSION:Conglomeration of nodules in a tree-in-bud like distribution is seen in the bilateral mid and lower lung zones. This is worrisome for infectious process.El ectronically signed by: Ayaan Donis (Feb 27, 2021 02:50:03)
[2021-02-27] MEDS ORDERED: ROCEPHIN VIAL 1 GRAM 1 G in NS 100 ML IV + SPIKE MINIBAG* 100 ML IV SCH (03:14)
[2021-02-27] MEDS ORDERED: ZOFRAN INJ 4 MG VIAL IVP PRN (03:17)
[2021-02-27] MEDS ORDERED: TYLENOL 500 MG TAB EXTRA STRENGTH PO PRN (03:17)
[2021-02-27] MEDS ORDERED: TESSALON PERLES PO PRN (03:17)
[2021-02-27] MEDS ORDERED: ROCEPHIN VIAL 1 GRAM ONE (03:25)
[2021-02-27] MEDS ORDERED: NS 100 ML IV + SPIKE MINIBAG* 100 ML IV ONE (03:26)
[2021-02-27] MEDS ORDERED: NS 100 ML IV 100 ML ONE (03:26)
[2021-02-27] MEDS ORDERED: SALINE 3% 15 ML NEB TX NEB ONE (03:28)
[2021-02-27] MEDS ORDERED: SALINE 3% 15 ML NEB TX ONE (03:52)
[2021-02-27 04:01] LABS: BILIRUBIN,URINE NEGATIVE (NEGATIVE); BLOOD/HEMOGLOBIN,URINE 1+ (NEGATIVE); GLUCOSE, URINE 2+ (NEGATIVE); KETONES,URINE NEGATIVE (NEGATIVE); LEUKOCYTE ESTERASE ,URINE 1+ (NEGATIVE); NITRITES,URINE NEGATIVE (NEGATIVE); PROTEIN,URINE 1+ (NEGATIVE); UROBILINOGEN,URINE NORMAL (NORMAL)
[2021-02-27 04:03] LABS: APPEARANCE,URINE CLEAR (CLEAR); BACTERIA,URINE NEGATIVE /HPF (NEGATIVE); COLOR,URINE STRAW (YELLOW); RBC,URINE NONE SEEN /HPF (0-3); SQUAMOUS EPITHELIAL CELL,UR NEGATIVE /HPF (NEGATIVE)
[2021-02-27] MEDS ORDERED: SOLU-Medrol 125 MG VIAL IVP SCH (06:00)
[2021-02-27] MEDS: DUONEB 0.5 MG/3 MG (3 mL) NEB SCH ×3 (06:19→17:14)
[2021-02-27] MEDS: NovoLIN R (or HumuLIN R) SUBCUT PRN ×3 (06:22→16:41)
[2021-02-27] MEDS ORDERED: LOVENOX INJ 40 MG SYR SC SCH (09:00)
[2021-02-27 13:16] LABS: CKMB % 3.7 % (<4); TROPONIN I 0.7 ng/mL (0-1.5)
[2021-02-27 13:18] LABS: CREATINE KINASE MB 4.8 ng/mL (0-4.0)
[2021-02-27] MEDS ORDERED: MORPHINE SULFATE INJ 2 MG INJ ONE (14:15)
[2021-02-27] MEDS ORDERED: NITRO-BID OINT 2% Multi-Dose tube TD ONE (14:16)
[2021-02-27] MEDS: MORPHINE SULFATE INJ 2 MG INJ IVP PRN ×2 (14:17→19:14)
[2021-02-27] MEDS ORDERED: ASPIRIN EC 81 MG PO ONE (14:17)
[2021-02-27] MEDS ORDERED: NITROSTAT ONE (14:18)
[2021-02-27] MEDS ORDERED: ECOTRIN TAB 325 MG PO ONE (14:18)
[2021-02-27] MEDS ORDERED: NITRO-BID OINT 2% Multi-Dose tube ONE (14:21)
[2021-02-27] MEDS ORDERED: ASPIRIN 81 MG CHEWTAB ONE (14:21)
[2021-02-27] MEDS ORDERED: NYSTATIN POWDER TOP SCH (15:00)
[2021-02-27 15:36] LABS: CKMB % 3.2 % (<4); TROPONIN I 0.49 ng/mL (0-1.5)
[2021-02-27 15:40] LABS: CREATINE KINASE MB 4.7 ng/mL (0-4.0)
[2021-02-27] MEDS ORDERED: CARDIZEM CD 240 MG 24-HR PO SCH (17:00)
[2021-02-27] MEDS ORDERED: SNACK - Diabetic Appropriate PO SCH (20:00)
[2021-02-27] MEDS ORDERED: DILTIAZEM HCL PO SCH (20:30)
--- NOTE | 2021-02-27 20:36 | DR.H&P ---
H&P - History & Physical for Day of: H&P Date: 02/26/21 - Chief Complaint Chief Complaint: SOB - History of Present Illness History of Present Illness: Patient is an 81 yo white female who was admitted due to dyspnea, pneumonia, rule out sepsis. Patient reports she has increased SOB over the past few days which has progressively gotten worse. Specifically reports worsening SOB over the past few hours prior to arrival to ER. Also reports increased cough over the past few days as well. Also reports increased lower ext swelling; takes lasix at home. Denies CP. Denies changes in bowel or bladder. Denies fever or chills. Patient lives at home with family. PCP Dr. Monterroso. H CAD, AAA, COPD, HTN, PE, HLD, DM and multiple other conditions. No other concerns at present. - Past Medical History Past Medical History: COPD, Coronary Artery Disease, Diabetes, Dyslipidemia, Hypertension, CT - Past Surgical History Surgical History: Appendectomy, Hysterectomy, Tonsillectomy - Family History Family Medical History: Cancer, CT, Heart Failure - Social History Does patient currently use any type of tobacco product: No Have you used tobacco products in the last 12 months: No Type of Tobacco Use: None Does any household member use tobacco: No Alcohol Use: None Drug Use: Prescription Drugs - Medications Home Medications: No Known Drug Allergies Allergy (Verified 11/25/19 20:13) CONTINUE taking the following medications ergocalciferol (vitamin D2) 1,250 mcg PO WEEKLY 02/27/21 [History] - Review of Systems Constitutional: See HPI Eyes: See HPI ENT: See HPI Respiratory: See HPI Cardiovascular: See HPI Gastrointestinal: See HPI Genitourinary: See HPI Musculoskeletal: See HPI Skin: See HPI Neurological: See HPI - Physical Exam Vital Signs: Temperature 98 F Pulse Rate [Left Radial] 133 Pulse Rate 104 Respiratory Rate 20 Blood Pressure [Right Arm] 114/56 Blood Pressure 107/56 O2 Sat by Pulse Oximetry 96 Oriented: Normal, Time, Person, Place Eyes: Normal Ear: Normal Nose: Normal Throat: Normal Respiratory: Diminished Throughout, Rhonchi Throughout Cardiovascular: Tachycardia : Normal Auscultation: Bowel Sounds: Normal Palpation: Normal Tenderness: Normal Skin: Normal Musculoskeletal: Normal (Generalized global weakness) Psychiatric: Normal Mood Description: Calm Affect: Normal Speech Pattern: Clear, Appropriate - Assessment/Plan (1) Hypoxia Status: Acute Plan: Oxygen sats were in the 80s upon arrival to ER. room air hypoxia. Supplemental oxygen. As above (2) Shortness of breath Status: Acute Plan: Supplemental oxygen therapy (3) Bilateral pneumonia Qualifiers: Pneumonia type: due to unspecified organism Lung location: lower lobe of lung Qualified Code(s): J18.9 - Pneumonia, unspecified organism Status: Acute Plan: IV abx and steroids. Cultures pending. Nebulizer treatments. Trend CXR and ABG (4) HTN (hypertension) Status: Chronic Plan: Home meds. Monitor (5) Pulmonary embolism Status: Chronic Plan: PMH of PE (6) CAD (coronary artery disease) Status: Chronic Plan: Monitor - Allergies Allergies/Adverse Reactions: Allergies Allergy/AdvReac Type Severity Reaction Status Date / Time No Known Drug Allergies Allergy Verified 11/25/19 20:13
--- NOTE | 2021-02-27 20:46 | PCM.PROG ---
Progress Note - Subjective Subjective: Patient is an 81 yo white female who was admitted as per the HPI. Patient reports improvement in symptoms. States SOB has improved however continues to require supplemental oxygen. Patient had an episode of substernal chest pain today. Cardiac enzymes and EKGs performed. Plan to transfer to [facility] for further cardiac workup and intervention. Troponin noted to be elevated. Questions answered and concerns addressed. - Past Medical Family Social History Past Med/Fam/Surg Hx: No changes since H&P Allergies: Allergies No Known Drug Allergies Allergy (Verified 11/25/19 20:13) - Review of Systems ROS: No change since H&P - Vital Signs and I&O's Vital Signs: Temperature 98 F Pulse Rate [Left Radial] 133 Pulse Rate 104 Respiratory Rate 20 Blood Pressure [Right Arm] 114/56 Blood Pressure 107/56 O2 Sat by Pulse Oximetry 96 Intake and Output: Intake & Output 02/24/21 02/25/21 02/26/21 02/27/21 23:59 23:59 23:59 23:59 Intake Total 800 / 800 Output Total 600 / 600 Balance 200 / 200 - Physical Exam Oriented: Normal, Time, Person, Place Eyes: Normal Ear: Normal Nose: Normal Throat: Normal Cardiovascular: Tachycardia : Normal Auscultation: Bowel Sounds: Normal Tenderness: Normal Skin: Normal Musculoskeletal: Normal (Generalized global weakness) Psychiatric: Normal Mood Description: Calm Affect: Normal Speech Pattern: Clear, Appropriate - Laboratory and Diagnostics Result Diagrams: 02/26/21 21:42 02/27/21 12:28 Labs: 02/27/21 03:40 Blood Blood Culture - Preliminary 02/27/21 09:05 Sputum - Expectorated Sputum - Final Laboratory WBC 11.0 X10^3/uL (3.6-10.0) H 02/26/21 21:42 RBC 4.41 X10^6/uL (3.5-5.4) 02/26/21 21:42 Hgb 13.6 g/dL (12.0-16.0) 02/26/21 21:42 Hct 40.3 % (36.0-47.0) 02/26/21 21:42 MCV 91.4 fL (80.0-100.0) 02/26/21 21:42 MCH 30.9 pg (27.0-34.0) 02/26/21 21:42 MCHC 33.9 g/dL (33.0-35.0) 02/26/21 21:42 RDW 13.9 % (11.6-16.5) 02/26/21 21:42 Plt Count 195 X10^3/uL (150.0-450.0) 02/26/21 21:42 MPV 9.4 fL (7.4-11.0) 02/26/21 21:42 Neut % (Auto) 59.9 % (42.0-75.0) 02/26/21 21:42 Lymph % (Auto) 22.5 % (21.0-51.0) 02/26/21 21:42 Leslie % (Auto) 13.1 % (0.0-13.0) H 02/26/21 21:42 Eos % (Auto) 4.1 % (0.9-2.9) H 02/26/21 21:42 Baso % (Auto) 0.4 % (0.2-1.0) 02/26/21 21:42 Neut # (Auto) 6.6 x10^3/uL (2.2-4.8) H 02/26/21 21:42 Lymph # (Auto) 2.5 X10^3/uL (1.3-2.9) 02/26/21 21:42 Leslie # (Auto) 1.4 x10^3/uL (0.3-0.8) H 02/26/21 21:42 Eos # (Auto) 0.5 x10^3/uL (0.0-0.2) H 02/26/21 21:42 Baso # (Auto) 0.0 X10^3/uL (0.0-0.1) 02/26/21 21:42 Absolute Nucleated RBC 0.0 /100WBC 02/26/21 21:42 Sample Site Rradial 02/26/21 21:54 ABG pH 7.390 (7.35-7.45) 02/26/21 21:54 ABG pCO2 44.0 mmHg (35.0-45.0) 02/26/21 21:54 ABG pO2 105.0 mmHg (80.0-100.0) H 02/26/21 21:54 ABG HCO3 26.6 mmol/L (22-26) H 02/26/21 21:54 ABG O2 Saturation 98.0 % (90-100) 02/26/21 21:54 ABG Base Excess 1.3 mmol/L (-2.0-2.0) 02/26/21 21:54 Edgar Test Positive 02/26/21 21:54 A-a Gradient 40.0 mmHg 02/26/21 21:54 FiO2 28.0 02/26/21 21:54 Blood Gas Comments Pt tolerated well 02/26/21 21:54 Sodium 133 mmol/L (136-145) L 02/26/21 21:42 Corrected Sodium 136 mmol/L (136-145) 02/26/21 21:42 Potassium 4.1 mmol/L (3.5-5.1) 02/26/21 21:42 Chloride 100 mmol/L (98-107) 02/26/21 21:42 Carbon Dioxide 27.3 mmol/L (21-32) 02/26/21 21:42 BUN 23 mg/dL (7-18) H 02/26/21 21:42 Creatinine 1.19 mg/dL (0.55-1.02) H 02/26/21 21:42 Est GFR (MDRD) Af Amer 56 (>60) L 02/26/21 21:42 Est GFR (MDRD) Non-Af 46 (>60) L 02/26/21 21:42 Glucose 450 mg/dL (65-99) H 02/27/21 12:28 POC Glucose (mg/dL) 383 mg/dL (65-99) H 02/27/21 16:39 Lactic Acid 1.0 mmol/L (0.4-2.0) 02/27/21 03:30 Calcium 8.2 mg/dL (8.5-10.1) L 02/26/21 21:42 Corrected Calcium TNP 02/26/21 21:42 Magnesium 2.3 mg/dL (1.7-2.9) 02/26/21 21:42 Total Bilirubin 0.50 mg/dL (0.2-1.0) 02/26/21 21:42 AST 34 Units/L (15-37) 02/26/21 21:42 ALT 47 Units/L (12-78) 02/26/21 21:42 Alkaline Phosphatase 119 Units/L (46-116) H 02/26/21 21:42 Creatine Kinase 148 Units/L (26-192) 02/27/21 14:47 CK-MB (CK-2) 4.7 ng/mL (0-4.0) H* 02/27/21 14:47 CK/CKMB % Calc 3.2 % (<4) 02/27/21 14:47 Troponin I 0.49 ng/mL (0-1.5) 02/27/21 14:47 B-Natriuretic Peptide 338 pg/mL (0-79) H 02/26/21 21:42 Total Protein 7.2 g/dL (6.4-8.2) 02/26/21 21:42 Albumin 3.4 g/dL (3.4-5.0) 02/26/21 21:42 Globulin 3.8 g/dL (2.5-4.5) 02/26/21 21:42 Albumin/Globulin Ratio 0.9 Ratio (1.1-2.1) L 02/26/21 21:42 Specimen Type Clean catch urine 02/27/21 03:21 Urine Color Straw (YELLOW) 02/27/21 03:21 Urine Appearance Clear (CLEAR) 02/27/21 03:21 Urine pH 5.0 (5.0 - 8.0) 02/27/21 03:21 Ur Specific [place] 1.010 (1.000-1.030) 02/27/21 03:21 Urine Protein 1+ (NEGATIVE) 02/27/21 03:21 Urine Glucose (UA) 2+ (NEGATIVE) 02/27/21 03:21 Urine Ketones Negative (NEGATIVE) 02/27/21 03:21 Urine Occult Blood 1+ (NEGATIVE) 02/27/21 03:21 Urine Nitrite Negative (NEGATIVE) 02/27/21 03:21 Urine Bilirubin Negative (NEGATIVE) 02/27/21 03:21 Urine Urobilinogen Normal (NORMAL) 02/27/21 03:21 Ur Leukocyte Esterase 1+ (NEGATIVE) 02/27/21 03:21 Urine RBC None seen /HPF (0-3) 02/27/21 03:21 Urine WBC 0-2 /HPF (0-5) 02/27/21 03:21 Ur Squamous Epith Cells Negative /HPF (NEGATIVE) 02/27/21 03:21 Urine Bacteria Negative /HPF (NEGATIVE) 02/27/21 03:21 Ur Culture Indicated? No/not indicated 02/27/21 03:21 SARS-CoV-2 (PCR) Negative (NEGATIVE) 02/27/21 00:17 Influenza Type A (PCR) Negative (NEGATIVE) 02/27/21 00:17 Influenza Type B (PCR) Negative (NEGATIVE) 02/27/21 00:17 RSV (PCR) Negative (NEGATIVE) 02/27/21 00:17 - Plan (1) Chest pain Status: Acute Plan: Serial cardiacs and EKGs. Tele. ASA. Pending transfer to [place] (2) Hypoxia Status: Acute Plan: Oxygen sats were in the 80s upon arrival to ER. room air hypoxia. Supplemental oxygen. As above (3) Shortness of breath Status: Acute Plan: Supplemental oxygen therapy (4) Bilateral pneumonia Status: Acute Qualifiers: Pneumonia type: due to unspecified organism Lung location: lower lobe of lung Qualified Code(s): J18.9 - Pneumonia, unspecified organism Plan: IV abx and steroids. Cultures pending. Nebulizer treatments. Trend CXR and ABG (5) HTN (hypertension) Status: Chronic Plan: Home meds. Monitor (6) Pulmonary embolism Status: Chronic Plan: PMH of PE (7) CAD (coronary artery disease) Status: Chronic Plan: Monitor
[2021-02-27] MEDS ORDERED: DIABETA PO SCH (21:00)
[2021-02-27] MEDS ORDERED: LIPITOR TAB 40 MG PO SCH (21:00)
[2021-02-27 21:14] VITALS: BP 111/60
[2021-02-28] MEDS ORDERED: K-DUR TAB 20 MEQ PO SCH (09:00)
[2021-02-28] MEDS ORDERED: LASIX PO SCH (09:00)
[2021-02-28] MEDS ORDERED: VITAMIN D (1.25MG) PO SCH (09:00)
[2021-02-28] MEDS ORDERED: ROCEPHIN VIAL 1 GRAM 1 G in NS 100 ML IV + SPIKE MINIBAG* 100 ML IV SCH (09:00)
[2021-02-28] MEDS ORDERED: ASPIRIN EC 81 MG PO SCH (09:00)
[2021-02-28] MEDS ORDERED: SNACK - Diabetic Appropriate PO SCH (20:00)
== END 2021-02-27 19:25 | disposition short-term general hospital (02) | DRG 871 ==
LOC: ER 21:12 → MED/SURG 02-27 03:10 → ICU 02-27 14:37
PROVIDERS: ADMIT Internal Medicine; ATTEND Internal Medicine
DX: A41.02 Sepsis due to Methicillin resistant Staphylococcus aureus; I10 Essential (primary) hypertension; Z86.711 Personal history of pulmonary embolism; R06.02 Shortness of breath; R60.0 Localized edema; N17.8 Other acute kidney failure; R07.89 Other chest pain; I25.10 Atherosclerotic heart disease of native coronary artery without angina pectoris; R65.20 Severe sepsis without septic shock; E78.2 Mixed hyperlipidemia; J18.8 Other pneumonia, unspecified organism; E11.65 Type 2 diabetes mellitus with hyperglycemia; J44.9 Chronic obstructive pulmonary disease, unspecified

== ENCOUNTER 2021-12-19 07:19 | Inpatient (IN) ==
[2021-12-19 07:26] VITALS: BMI 25.8
--- NOTE | 2021-12-19 07:41 | DR.GENAD ---
HPI Time Seen Time Seen by Provider: 12/19/21 07:38 PCP Primary Care Physician: FAYE BUSTAMANTE HPI Comment HPI Comment: An 81 y/o female who was brought into the ED by EMS due to being found on the floor this morning. The pt. does not know long she has been on the floor. She is diabetic and takes OHA but uses no Insulin.She states that she did not eat much yesterday as she does not like eating. She denies any head or skeletal injury. She does have a cane to use for ambulatory aid. Her FBS per EMS this morning was reported at 76 and after having some snacks, it was at 90 prior to arrival in the ED. Complaint/Symptoms Chief Complaint:: PT C/O WAKING UP ON THE FLOOR THIS MORNING AND WAS UNSURE OF HOW SHE GOT THERE. UPON ARRIVAL OF EMS INITIAL BS WAS 76. PT WAS SLOW TO RESPOND AND WAS GIVEN ORANGE JUICE. NEXT BS WAS 90 JUST PRIOR TO ARRIVAL AND PT IS AWAKE, ALERT, AND ORIENTED TO PERSON, PLACE AND TIME DENIES ANY PAIN AT PRESENT COVID-19 Coronavirus risk:travel/contact w/high risk person: No Has patient experienced Coronavirus symptoms: No Nurses notes reviewed Nurses Notes Review: Yes Source History Provided: Patient and EMS Mode of Arrival Mode of Arrival: Stretcher Timing Onset of Chief Complaint: 12/19/21 Duration Duration: Unknown PMH PMH Past Medical History: Yes Past Medical History: Coronary Artery Disease, Diabetes, Dyslipidemia, Hypertension and [place] Past Medical History Comment: AORTIC ANEURYSM Past Surgical History: Yes Surgical History: Angioplasty/Stents, Appendectomy, Hysterectomy and Tonsillectomy Family History History of Family Medical Conditions: Yes Family Medical History: Diabetes Mellitus, [place], Coronary Artery Disease, Heart Failure and Hypertension Social History Does patient currently use any type of tobacco product: No Have you used tobacco products in the last 12 months: No Type of Tobacco Use: None Does any household member use tobacco: No Alcohol Use: None Do you use any recreational Drugs:: No Lives With: Family Lives Where: Home Travel Risk Coronavirus risk:travel/contact w/high risk person: No Has patient experienced Coronavirus symptoms: No Infectious screening In the last 2 months have you had wt loss of >10#?: NO Have you had fever, night sweats or hemotysis?: No Have you traveled outside the country in the last 6 months?: No Isolation: Standard ROS Review of Systems Constitutional: No Symptoms Reported Eyes: No Symptoms Reported ENTM: No Symptoms Reported Respiratoy: No Symptoms Reported Cardiovascular: No Symptoms Reported Gastrointestinal/Abdominal: No Symptoms Reported Genitourinary: No Symptoms Reported Neurological: No Symptoms Reported Musculoskeletal: No Symptoms Reported Integumentary: No Symptoms Reported Hematologic/Lymphatic: No Symptoms Reported Endocrine: No Symptoms Reported Psychiatric: No Symptoms Reported All Other Systems: Reviewed and Negative PE Vital Signs Vitals: Temperature 98.3 F Pulse Rate 77 Respiratory Rate 36 Blood Pressure [Right Arm] 111/60 Blood Pressure 154/70 O2 Sat by Pulse Oximetry 96 General Limitations: No Limitations General Appearance: Alert and In No Apparent Distress Head Head Exam: Normal Inspection, Atraumatic and Normocephalic Eyes Eye exam: Normal Appearance, PERRL and EOMI ENT ENT Exam: Normal Exam, Normal Oropharynx, Normal External Ear Exam and Mucous Membranes Moist Neck Neck Exam: Normal Inspection, Full ROM and Trachea Midline Chest Chest Inspection: Normal Inspection and Symmetric Chest Wall Rise Respiratory Respiratory Exam: Normal Lung Sounds Bilat Cardiovascular Cardiovascular Exam: Regular Rate, Normal Rhythm, Normal Heart Sounds, +S1 and +S2 Abdominal Exam Abdominal Exam: Normal Inspection, Normal Bowel Sounds and Soft Extremities Extremities Exam: Normal Inspection and Full ROM Back Back Exam: Normal Inspection and Full ROM Neurologic Neurological Exam: Alert and Oriented X3 Psychiatric Psychiatric Exam: Normal Affect and Normal Mood Skin Skin Exam: Dry, Intact and Normal Color COURSE Treatment Treatment: Pt's. care was turned over at shift change. Consultation Consultation Comments: Name: KAYLIE LEON [facility]#: [id number]: [id number]: 1940Sex: FLocation: EROrder Number(s): [id number](s):CHEST, 1 VIEW Ordering Physician: TOM ESPANA Primary Care: [facility] Service Date: 12/19/21 Service Time: 0745 HISTORY Altered mental status STUDY Chest AP portable COMPARISON 02/26/2021 FINDINGS Hear t is enlarged. No congestive heart failure is noted. No acute alveolar infiltrates or pleural effusions are identified. Bony thorax is unremarkable. IMPRESSION Cardiomegaly without congestive heart failure Lungs clear Electronically signed by: PRO BORGES (Dec 19, 2021 07:57:55) Report Electronically signed: 12/19/21 0759 CC: Tom Espana ROR Labs Reviewed Result Diagrams: 12/22/21 04:50 12/22/21 04:50 Laboratory: 12/19/21 07:58 Urine,Clean Catch Urine Culture - Final Escherichia Coli WBC 7.6 X10^3/uL (3.6-10.0) 12/19/21 07:40 RBC 4.18 X10^6/uL (3.5-5.4) 12/19/21 07:40 Hgb 12.4 g/dL (12.0-16.0) 12/19/21 07:40 Hct 37.2 % (36.0-47.0) 12/19/21 07:40 MCV 88.9 fL (80.0-100.0) 12/19/21 07:40 MCH 29.7 pg (27.0-34.0) 12/19/21 07:40 MCHC 33.5 g/dL (33.0-35.0) 12/19/21 07:40 RDW 14.6 % (11.6-16.5) 12/19/21 07:40 Plt Count 156 X10^3/uL (150.0-450.0) 12/19/21 07:40 MPV 9.2 fL (7.4-11.0) 12/19/21 07:40 Neut % (Auto) 67.0 % (42.0-75.0) 12/19/21 07:40 Lymph % (Auto) 20.4 % (21.0-51.0) L 12/19/21 07:40 [place] % (Auto) 10.6 % (0.0-13.0) 12/19/21 07:40 Eos % (Auto) 1.6 % (0.9-2.9) 12/19/21 07:40 Baso % (Auto) 0.4 % (0.2-1.0) 12/19/21 07:40 Neut # (Auto) 5.1 x10^3/uL (2.2-4.8) H 12/19/21 07:40 Lymph # (Auto) 1.6 X10^3/uL (1.3-2.9) 12/19/21 07:40 [place] # (Auto) 0.8 x10^3/uL (0.3-0.8) 12/19/21 07:40 Eos # (Auto) 0.1 x10^3/uL (0.0-0.2) 12/19/21 07:40 Baso # (Auto) 0.0 X10^3/uL (0.0-0.1) 12/19/21 07:40 Absolute Nucleated RBC 0.1 /100WBC 12/19/21 07:40 Sodium 137 mmol/L (136-145) 12/19/21 07:40 Corrected Sodium 137 mmol/L (136-145) 12/19/21 07:40 Potassium 4.3 mmol/L (3.5-5.1) 12/19/21 07:40 Chloride 103 mmol/L (98-107) 12/19/21 07:40 Carbon Dioxide 27.3 mmol/L (21-32) 12/19/21 07:40 BUN 24 mg/dL (7-18) H 12/19/21 07:40 Creatinine 1.19 mg/dL (0.55-1.02) H 12/19/21 07:40 Est GFR (MDRD) Af Amer 56 (>60) L 12/19/21 07:40 Est GFR (MDRD) Non-Af 46 (>60) L 12/19/21 07:40 Glucose 112 mg/dL (65-99) H 12/19/21 07:40 Calcium 7.4 mg/dL (8.5-10.1) L 12/19/21 07:40 Corrected Calcium 8.2 mg/dL (8.5-10.1) L 12/19/21 07:40 Total Bilirubin 0.30 mg/dL (0.2-1.0) 12/19/21 07:40 AST 26 Units/L (15-37) 12/19/21 07:40 ALT 24 Units/L (12-78) 12/19/21 07:40 Alkaline Phosphatase 68 Units/L (46-116) 12/19/21 07:40 Total Protein 6.5 g/dL (6.4-8.2) 12/19/21 07:40 Albumin 3.0 g/dL (3.4-5.0) L 12/19/21 07:40 Globulin 3.5 g/dL (2.5-4.5) 12/19/21 07:40 Albumin/Globulin Ratio 0.9 Ratio (1.1-2.1) L 12/19/21 07:40 Specimen Type Clean catch urine 12/19/21 07:58 Urine Color Yellow (YELLOW) 12/19/21 07:58 Urine Appearance Clear (CLEAR) 12/19/21 07:58 Urine pH 6.0 (5.0 - 8.0) 12/19/21 07:58 Ur Specific [place] 1.020 (1.000-1.030) 12/19/21 07:58 Urine Protein 2+ (NEGATIVE) 12/19/21 07:58 Urine Glucose (UA) Negative (NEGATIVE) 12/19/21 07:58 Urine Ketones Negative (NEGATIVE) 12/19/21 07:58 Urine Blood 1+ (NEGATIVE) 12/19/21 07:58 Urine Nitrite Negative (NEGATIVE) 12/19/21 07:58 Urine Bilirubin Negative (NEGATIVE) 12/19/21 07:58 Urine Urobilinogen Normal (NORMAL) 12/19/21 07:58 Ur Leukocyte Esterase 1+ (NEGATIVE) 12/19/21 07:58 Urine RBC 0-2 /HPF (0-3) 12/19/21 07:58 Urine WBC 0-2 /HPF (0-5) 12/19/21 07:58 Ur Squamous Epith Cells Few /HPF (NEGATIVE) 12/19/21 07:58 Urine Bacteria 2+ /HPF (NEGATIVE) 12/19/21 07:58 Ur Culture Indicated? Yes/culture set up 12/19/21 07:58 SARS-CoV-2 (PCR) Positive (NEGATIVE) A 12/19/21 09:15 Influenza Type A (PCR) Negative (NEGATIVE) 12/19/21 09:15 Influenza Type B (PCR) Negative (NEGATIVE) 12/19/21 09:15 RSV (PCR) Negative (NEGATIVE) 12/19/21 09:15 Opioid Opioid Risk Tool Age (Graham box if 16-45): No History of Preadolescent Sexual Abuse: No Total: 0 Total Score Risk Category: Low Risk Copyright: Nawaf DAS predicting aberrant behaviors Discharge Plan Diagnosis Discharge Problem: Generalized weakness, Hypoglycemia, UTI (urinary tract infection) Discharge Plan Patient Disposition: ADMITTED INPATIENT Condition: Stable ADDITIONAL NOTES Additional Notes Additional Notes: Name: KAYLIE LEON#: [id number]: [id number]: 1940Sex: FLocation: EROrder Number(s): [id number](s):BRAIN W/O CON Ordering Physician: TOM ESPANA Primary Care: [facility] Service Date: 12/19/21 Service Time: 728 HISTORY Altered mental status, syncope STUDY CT head without contrast Technique: Axial noncontrast images with coronal and sagittal reformats. Dose reduction procedures were used with mA/kv adjusted for body size. COMPARISON None FINDINGS Ventricles are normal in size shape and position. Mild cortical atrophy is present likely age related. There are no focal areas of abnormal attenuation to suggest recent or remote CVA, hemorrhage, contusion, mass lesion, or extra-axial fluid collection. The visualized sinuses are clear. The calvarium is intact. IMPRESSION No definite acute intracranial abnormality identified Mild cortical atrophy likely age related Electronically signed by: PRO BORGES (Dec 19, 2021 08:01:04) Report Electronically signed: 12/19/21 08 CC: Tom Espana
[2021-12-19 07:50] LABS: BASOPHILS % (AUTO) 0.4 % (0.2-1.0); EOSINOPHILS # (AUTO) 0.1 x10^3/uL (0.0-0.2); EOSINOPHILS % (AUTO) 1.6 % (0.9-2.9); HEMATOCRIT 37.2 % (36.0-47.0); HEMOGLOBIN 12.4 g/dL (12.0-16.0); LYMPHOCYTES # (AUTO) 1.6 X10^3/uL (1.3-2.9); LYMPHOCYTES % (AUTO) 20.4 % (21.0-51.0); MEAN CORPUSCULAR HEMOGLOBIN 29.7 pg (27.0-34.0); MEAN CORPUSCULAR HGB CONC 33.5 g/dL (33.0-35.0); MEAN CORPUSCULAR VOLUME 88.9 fL (80.0-100.0); MEAN PLATELET VOLUME 9.2 fL (7.4-11.0); MONOCYTES # (AUTO) 0.8 x10^3/uL (0.3-0.8); MONOCYTES % (AUTO) 10.6 % (0.0-13.0); NEUTROPHILS # (AUTO) 5.1 x10^3/uL (2.2-4.8); RED BLOOD COUNT 4.18 X10^6/uL (3.5-5.4); RED CELL DISTRIBUTION WIDTH 14.6 % (11.6-16.5); WHITE BLOOD COUNT 7.6 X10^3/uL (3.6-10.0)
--- NOTE | 2021-12-19 07:59 | RAD ---
HISTORYAltered mental statusSTUDYChest AP [id number]/2021FINDINGSHear t is enlarged. No congestive heart failure is noted. No acute alveolar infiltrates or pleural effusions are identified. Bony thorax is unremarkable.IMPRESSIONCardiomegaly without congestive heart failureLungs clearElectronically signed by: PRO BORGES (Dec 19, 2021 07:57:55)
--- NOTE | 2021-12-19 08:02 | CT ---
HISTORYAltered mental status, syncopeSTUDYCT head without contrastTechnique: Axial noncontrast images with coronal and sagittal reformats. Dose reduction procedures were used with mA/kv adjusted for body size.COMPARISONNoneFINDINGSVentricles are normal in size shape and position. Mild cortical atrophy is present likely age related. There are no focal areas of abnormal attenuation to suggest recent or remote CVA, hemorrhage, contusion, mass lesion, or extra-axial fluid collection. The visualized sinuses are clear. The calvarium is intact.IMPRESSIONNo definite acute intracranial abnormality identifiedMild cortical atrophy likely age relatedElectronically signed by: PRO BORGES (Dec 19, 2021 08:01:04)
[2021-12-19 08:03] LABS: CALCIUM 7.4 mg/dL (8.5-10.1); CARBON DIOXIDE 27.3 mmol/L (21-32); COR CA(FOR HYPOALB) 8.2 mg/dL (8.5-10.1); CREATININE 1.19 mg/dL (0.55-1.02); TOTAL PROTEIN 6.5 g/dL (6.4-8.2)
[2021-12-19 08:14] LABS: BILIRUBIN,URINE NEGATIVE (NEGATIVE); BLOOD/HEMOGLOBIN,URINE 1+ (NEGATIVE); GLUCOSE, URINE NEGATIVE (NEGATIVE); KETONES,URINE NEGATIVE (NEGATIVE); LEUKOCYTE ESTERASE ,URINE 1+ (NEGATIVE); NITRITES,URINE NEGATIVE (NEGATIVE); PROTEIN,URINE 2+ (NEGATIVE); UROBILINOGEN,URINE NORMAL (NORMAL)
[2021-12-19 08:18] LABS: APPEARANCE,URINE CLEAR (CLEAR); COLOR,URINE YELLOW (YELLOW)
[2021-12-19 08:24] LABS: RBC,URINE 0-2 /HPF (0-3)
[2021-12-19 08:25] LABS: BACTERIA,URINE 2+ /HPF (NEGATIVE); SQUAMOUS EPITHELIAL CELL,UR FEW /HPF (NEGATIVE)
[2021-12-19] MEDS ORDERED: GLUCOPHAGE PO SCH (21:00)
[2021-12-19] MEDS: NEURONTIN CAP 300 MG PO SCH (21:31)
[2021-12-19] MEDS: COREG TAB 6.25 MG PO SCH (21:32)
[2021-12-19] MEDS: PLAVIX PO SCH (21:36)
[2021-12-20 05:32] LABS: BASOPHILS % (AUTO) 0.3 % (0.2-1.0); EOSINOPHILS # (AUTO) 0.1 x10^3/uL (0.0-0.2); EOSINOPHILS % (AUTO) 1.5 % (0.9-2.9); HEMATOCRIT 32.7 % (36.0-47.0); HEMOGLOBIN 11.2 g/dL (12.0-16.0); LYMPHOCYTES # (AUTO) 1.4 X10^3/uL (1.3-2.9); LYMPHOCYTES % (AUTO) 21.5 % (21.0-51.0); MEAN CORPUSCULAR HEMOGLOBIN 30.3 pg (27.0-34.0); MEAN CORPUSCULAR HGB CONC 34.2 g/dL (33.0-35.0); MEAN CORPUSCULAR VOLUME 88.4 fL (80.0-100.0); MEAN PLATELET VOLUME 9.4 fL (7.4-11.0); MONOCYTES # (AUTO) 0.8 x10^3/uL (0.3-0.8); MONOCYTES % (AUTO) 12.1 % (0.0-13.0); NEUTROPHILS # (AUTO) 4.1 x10^3/uL (2.2-4.8); NEUTROPHILS % (AUTO) 64.6 % (42.0-75.0); RED CELL DISTRIBUTION WIDTH 14.4 % (11.6-16.5); WHITE BLOOD COUNT 6.3 X10^3/uL (3.6-10.0)
[2021-12-20 05:59] LABS: ALANINE AMINOTRANSFERASE 19 Units/L (12-78); ALBUMIN 2.5 g/dL (3.4-5.0); ALKALINE PHOSPHATASE 58 Units/L (46-116); ASPARTATE AMINO TRANSFERASE 20 Units/L (15-37); BLOOD UREA NITROGEN 13 mg/dL (7-18); CALCIUM 7.3 mg/dL (8.5-10.1); CARBON DIOXIDE 30.2 mmol/L (21-32); CHLORIDE 107 mmol/L (98-107); COR CA(FOR HYPOALB) 8.5 mg/dL (8.5-10.1); CREATINE KINASE 73 Units/L (26-192); CREATININE 0.85 mg/dL (0.55-1.02); SODIUM 141 mmol/L (136-145); TOTAL PROTEIN 5.6 g/dL (6.4-8.2); eGFR NON BLACK RACES > 60 (>60)
[2021-12-20] MEDS ORDERED: XOPENEX 1.25 MG/3 ML NEBULE NEB ONE (09:11)
[2021-12-20] MEDS ORDERED: PULMICORT NEB TX 0.5 MG NEB ONE (09:11)
[2021-12-20] MEDS: CARDIZEM CD 240 MG 24-HR PO SCH (09:18)
[2021-12-20] MEDS: ASPIRIN EC 81 MG PO SCH (09:18)
[2021-12-20] MEDS: LIPITOR TAB 40 MG PO SCH (09:18)
[2021-12-20] MEDS: NEURONTIN CAP 300 MG PO SCH ×2 (09:18→20:07)
[2021-12-20] MEDS: COREG TAB 6.25 MG PO SCH ×2 (09:18→20:07)
[2021-12-20] MEDS ORDERED: DUONEB 0.5 MG/3 MG (3 mL) NEB SCH (10:14)
[2021-12-20] MEDS ORDERED: ROCEPHIN 1 GRAM IV PREMIX 1 G/50 ML IV.SOLN. IV SCH (10:15)
[2021-12-20] MEDS: LOVENOX INJ 40 MG SYR SC SCH (11:27)
[2021-12-20] MEDS: TRADJENTA PO SCH (11:27)
[2021-12-20] MEDS: ROCEPHIN VIAL 1 GRAM 1 G in NS 100 ML IV 100 ML IV SCH (11:28)
--- NOTE | 2021-12-20 12:50 | DR.H&P ---
H&P - History & Physical for Day of: H&P Date: 12/19/21 - Chief Complaint Chief Complaint: low blood sugar - History of Present Illness History of Present Illness: An 81 y/o female who was brought into the ED by EMS due to being found on the floor this morning. The pt. does not know long she has been on the floor. She is diabetic and takes OHA but uses no Insulin.She states that she did not eat much yesterday as she does not like eating. She denies any head or skeletal injury. She does have a cane to use for ambulatory aid. Her FBS per EMS this morning was reported at 76 and after having some snacks, it was at 90 prior to arrival in the ED. - Past Medical History Past Medical History: Arthritis, Coronary Artery Disease, Diabetes, Dyslipidemia, Hypertension, [place] - Past Surgical History Surgical History: Angioplasty/Stents, Appendectomy, Hysterectomy, Tonsillectomy - Family History Family Medical History: Cancer, [place] - Social History Does patient currently use any type of tobacco product: No Have you used tobacco products in the last 12 months: No Type of Tobacco Use: None Does any household member use tobacco: No Alcohol Use: None Drug Use: None - Medications Home Medications: No Known Drug Allergies Allergy (Verified 11/25/19 20:13) CONTINUE taking the following medications carvedilol 6.25 mg tablet 6.25 mg PO BID 12/19/21 [History] cetirizine 10 mg tablet 10 mg PO HS 12/19/21 [History] clopidogrel 75 mg tablet 758 mg PO HS 12/19/21 [History] gabapentin 300 mg tablet 300 mg PO BID 12/19/21 [History] linagliptin 5 mg tablet (Tradjenta) 5 mg PO DAILY 12/19/21 [History] - Review of Systems Constitutional: Weakness, Malaise Eyes: No Symptoms Reported ENT: No Symptoms Reported Respiratory: SOB with Excertion Cardiovascular: denies: Chest Pain Gastrointestinal: Nausea Genitourinary: No Symptoms Reported Musculoskeletal: No Symptoms Reported Skin: No Symptoms Reported Neurological: Weakness - Physical Exam Vital Signs: Temperature 98.2 F Pulse Rate [Left Brachial] 79 Pulse Rate 77 Respiratory Rate 22 Blood Pressure [Right Arm] 110/52 Blood Pressure 154/70 O2 Sat by Pulse Oximetry 94 Oriented: Normal Eyes: Normal Ear: Normal Nose: Normal Throat: Normal Respiratory: RLL Diminished, LLL Diminished Cardiovascular: Murmur : Normal Auscultation: Bowel Sounds: Normal, Absent Tenderness: Normal Skin: Decreased [place]urg[place] Musculoskeletal: Normal Psychiatric: Anxiety Affect: Anxious Speech Pattern: Clear - Assessment/Plan (1) Syncope Status: Acute Plan: ADMIT, COVID [address] PRECAUTIONS. CARDI[address] MONITORING. CT HEAD ON ADMISSION. ADMISSION LABS, RESP CONSULT. BLOOD SUGAR AND BLOOD PRESSURE MONITORING. STRICT I&OS, SUPPLEMENTAL O2, VERIFY HOME MEDICATION (2) CHF (congestive heart failure) Status: Acute (3) CAD (coronary artery disease) Status: Acute (4) Diabetes Status: Acute (5) HTN (hypertension) Status: Chronic (6) CAD (coronary artery disease) Status: Chronic - Allergies Allergies/Adverse Reactions: Allergies Allergy/AdvReac Type Severity Reaction Status Date / Time No Known Drug Allergies Allergy Verified 11/25/19 20:13
[2021-12-20 13:56] LABS: ABG BASE EXCESS 5.8 mmol/L (-2.0-2.0)
[2021-12-20 13:57] LABS: ABG ALLEN TEST POS; ABG HCO3 32.1 mmol/L (22-26)
[2021-12-20] MEDS: PULMICORT NEB TX 0.5 MG NEB SCH ×2 (14:27→21:00)
[2021-12-20] MEDS: XOPENEX 1.25 MG/3 ML NEBULE NEB SCH ×2 (14:27→21:00)
[2021-12-20] MEDS: PLAVIX PO SCH (20:08)
--- NOTE | 2021-12-21 02:12 | RAD ---
PROCEDURE: Chest X-ray 1 View .HISTORY: Dyspnea and COVID-19.TECHNIQUE: AP view .COMPARISON: 12/19/2021.TECHNICAL QUALITY: Satisfactory .FINDINGS:Heart size upper limits of normal.Mediastinum and hilar regions show no masses or lymphadenopathy .Normal central vascularity .No pulmonary consolidation, masses, pleural fluid, or pneumothorax .No acute bony abnormality .IMPRESSION:Unchanged start size upper limits of normal with no other evidence of active disease.Electronically signed by: Raj Cordero (Dec 21, 2021 02:10:55)
[2021-12-21 05:41] LABS: BASOPHILS % (AUTO) 0.5 % (0.2-1.0); EOSINOPHILS # (AUTO) 0.1 x10^3/uL (0.0-0.2); EOSINOPHILS % (AUTO) 1.9 % (0.9-2.9); HEMATOCRIT 33.7 % (36.0-47.0); HEMOGLOBIN 11.3 g/dL (12.0-16.0); LYMPHOCYTES # (AUTO) 1.7 X10^3/uL (1.3-2.9); LYMPHOCYTES % (AUTO) 34.1 % (21.0-51.0); MEAN CORPUSCULAR HEMOGLOBIN 29.8 pg (27.0-34.0); MEAN CORPUSCULAR HGB CONC 33.6 g/dL (33.0-35.0); MEAN CORPUSCULAR VOLUME 88.8 fL (80.0-100.0); MEAN PLATELET VOLUME 9.3 fL (7.4-11.0); MONOCYTES # (AUTO) 0.7 x10^3/uL (0.3-0.8); MONOCYTES % (AUTO) 13.1 % (0.0-13.0); NEUTROPHILS # (AUTO) 2.6 x10^3/uL (2.2-4.8); NEUTROPHILS % (AUTO) 50.4 % (42.0-75.0); RED CELL DISTRIBUTION WIDTH 14.6 % (11.6-16.5); WHITE BLOOD COUNT 5.1 X10^3/uL (3.6-10.0)
[2021-12-21 06:11] LABS: ALANINE AMINOTRANSFERASE 19 Units/L (12-78); ALBUMIN 2.6 g/dL (3.4-5.0); ALKALINE PHOSPHATASE 60 Units/L (46-116); ASPARTATE AMINO TRANSFERASE 20 Units/L (15-37); BLOOD UREA NITROGEN 13 mg/dL (7-18); CALCIUM 7.3 mg/dL (8.5-10.1); CHLORIDE 106 mmol/L (98-107); COR CA(FOR HYPOALB) 8.4 mg/dL (8.5-10.1); COR NA(FOR HYPERGLY) 142 mmol/L (136-145); CREATINE KINASE 64 Units/L (26-192); CREATININE 0.82 mg/dL (0.55-1.02); SODIUM 141 mmol/L (136-145); eGFR NON BLACK RACES > 60 (>60)
[2021-12-21] MEDS: NEURONTIN CAP 300 MG PO SCH ×2 (09:21→22:13)
[2021-12-21] MEDS: ASPIRIN EC 81 MG PO SCH (09:21)
[2021-12-21] MEDS: PULMICORT NEB TX 0.5 MG NEB SCH ×2 (09:21→21:20)
[2021-12-21] MEDS: COREG TAB 6.25 MG PO SCH ×2 (09:21→22:12)
[2021-12-21] MEDS: CARDIZEM CD 240 MG 24-HR PO SCH (09:21)
[2021-12-21] MEDS: LIPITOR TAB 40 MG PO SCH (09:21)
[2021-12-21] MEDS: XOPENEX 1.25 MG/3 ML NEBULE NEB SCH ×2 (09:21→21:20)
[2021-12-21] MEDS: ROCEPHIN VIAL 1 GRAM 1 G in NS 100 ML IV 100 ML IV SCH (09:23)
[2021-12-21] MEDS: LOVENOX INJ 40 MG SYR SC SCH (09:23)
[2021-12-21] MEDS: TRADJENTA PO SCH (09:27)
[2021-12-21] MEDS ORDERED: GLUCOPHAGE ONE (09:28)
--- NOTE | 2021-12-21 13:34 | CT ---
HISTORYGENERAL WEAKNESS, SOB, R/O PE, ELEVATED D DIMER (1.41)STUDYCTA CHESTCOMPARISONNoneTECHNIQUECT images of the chest were obtained after IV contrast administration per protocol. Automatic exposure control was utilized. MIP images provided and reviewed.FINDINGSImages through the upper abdomen demonstrate small hiatal hernia of the stomach. No acute osseous abnormality. There is mild thoracic spine degenerative disease.The heart is mildly enlarged. No significant pericardial thickening or pericardial effusion. There is severe coronary artery calcification. No bulky intrathoracic lymph nodes are identified. The thoracic aorta is normal in caliber. No pulmonary arterial filling defect is identified. There are scattered areas of pleural parenchymal scarring in the mid to lower lungs, most prominent within the lower lobes. No focal consolidation, pleural effusion, or pneumothorax. The large airways are patent.IMPRESSIONNo evidence for PTE or other acute cardiopulmonary abnormality.Cardiomegaly, severe coronary artery disease, scattered pleural parenchymal scarring, small hiatal hernia.Electronically signed by: PARESH SCHAFFER (Dec 21, 2021 13:32:11)
[2021-12-21] MEDS: ROBITUSSIN DM PO SCH ×3 (13:48→22:13)
[2021-12-21] MEDS: PLAVIX PO SCH (22:13)
[2021-12-22 05:33] LABS: BASOPHILS # (AUTO) 0.2 X10^3/uL (0.0-0.1); BASOPHILS % (AUTO) 3.3 % (0.2-1.0); EOSINOPHILS % (AUTO) 0.9 % (0.9-2.9); HEMOGLOBIN 10.9 g/dL (12.0-16.0); LYMPHOCYTES # (AUTO) 1.3 X10^3/uL (1.3-2.9); LYMPHOCYTES % (AUTO) 23.8 % (21.0-51.0); MEAN CORPUSCULAR HEMOGLOBIN 30.1 pg (27.0-34.0); MEAN CORPUSCULAR VOLUME 88.4 fL (80.0-100.0); MEAN PLATELET VOLUME 9.7 fL (7.4-11.0); MONOCYTES # (AUTO) 0.8 x10^3/uL (0.3-0.8); MONOCYTES % (AUTO) 13.5 % (0.0-13.0); NEUTROPHILS # (AUTO) 3.3 x10^3/uL (2.2-4.8); NEUTROPHILS % (AUTO) 58.5 % (42.0-75.0); RED BLOOD COUNT 3.62 X10^6/uL (3.5-5.4); RED CELL DISTRIBUTION WIDTH 14.5 % (11.6-16.5); WHITE BLOOD COUNT 5.6 X10^3/uL (3.6-10.0)
[2021-12-22 06:05] LABS: ALANINE AMINOTRANSFERASE 16 Units/L (12-78); ALBUMIN 2.4 g/dL (3.4-5.0); ALKALINE PHOSPHATASE 53 Units/L (46-116); ASPARTATE AMINO TRANSFERASE 20 Units/L (15-37); BLOOD UREA NITROGEN 11 mg/dL (7-18); CALCIUM 7.3 mg/dL (8.5-10.1); CARBON DIOXIDE 31.2 mmol/L (21-32); CHLORIDE 105 mmol/L (98-107); COR CA(FOR HYPOALB) 8.6 mg/dL (8.5-10.1); COR NA(FOR HYPERGLY) 141 mmol/L (136-145); CREATININE 0.73 mg/dL (0.55-1.02); SODIUM 141 mmol/L (136-145); TOTAL PROTEIN 5.7 g/dL (6.4-8.2); eGFR NON BLACK RACES > 60 (>60)
[2021-12-22] MEDS: XOPENEX 1.25 MG/3 ML NEBULE NEB SCH ×2 (08:38→20:02)
[2021-12-22] MEDS: PULMICORT NEB TX 0.5 MG NEB SCH ×2 (08:38→20:02)
[2021-12-22] MEDS: ASPIRIN EC 81 MG PO SCH (09:23)
[2021-12-22] MEDS: CARDIZEM CD 240 MG 24-HR PO SCH (09:28)
[2021-12-22] MEDS: LIPITOR TAB 40 MG PO SCH (09:29)
[2021-12-22] MEDS: COREG TAB 6.25 MG PO SCH ×2 (09:29→21:54)
[2021-12-22] MEDS: NEURONTIN CAP 300 MG PO SCH ×2 (09:30→21:54)
[2021-12-22] MEDS: ROBITUSSIN DM PO SCH ×4 (09:30→21:53)
[2021-12-22] MEDS: LOVENOX INJ 40 MG SYR SC SCH (09:30)
[2021-12-22] MEDS: ROCEPHIN VIAL 1 GRAM 1 G in NS 100 ML IV 100 ML IV SCH (09:30)
[2021-12-22] MEDS: TRADJENTA PO SCH (09:31)
[2021-12-22] MEDS: LEVAQUIN PREMIX IV 500 MG 500 MG/100 ML BAG IV SCH (15:32)
--- NOTE | 2021-12-22 15:32 | RAD ---
HISTORYSOBSTUDYAP chestCOMPARISONSeptember 2021FINDINGSStable heart size with clear left chest. There is now suggested a small parenchymal focus in the anterior segment of the right upper lobe. There is no other evidence for infiltrate, atelectasis or pleural fluid.IMPRESSIONsmall focus of developing infiltrate in the right upper lobe. Follow-up suggested.Electronically signed by: SHAUNA OWUSU (Dec 22, 2021 15:31:09)
[2021-12-22] MEDS ORDERED: TESSALON PERLES PO PRN (19:20)
[2021-12-22] MEDS: PLAVIX PO SCH (21:54)
[2021-12-23] MEDS ORDERED: LASIX IVP ONE (00:02)
[2021-12-23] MEDS ORDERED: XOPENEX 1.25 MG/3 ML NEBULE NEB ONE (00:12)
[2021-12-23] MEDS: XOPENEX 1.25 MG/3 ML NEBULE NEB PRN ×3 (00:15→21:00)
[2021-12-23 06:29] LABS: BASOPHILS % (AUTO) 0.4 % (0.2-1.0); EOSINOPHILS % (AUTO) 0.3 % (0.9-2.9); HEMATOCRIT 30.5 % (36.0-47.0); HEMOGLOBIN 10.4 g/dL (12.0-16.0); LYMPHOCYTES # (AUTO) 1.2 X10^3/uL (1.3-2.9); LYMPHOCYTES % (AUTO) 20.1 % (21.0-51.0); MEAN CORPUSCULAR HEMOGLOBIN 30.3 pg (27.0-34.0); MEAN CORPUSCULAR HGB CONC 34.3 g/dL (33.0-35.0); MEAN CORPUSCULAR VOLUME 88.5 fL (80.0-100.0); MEAN PLATELET VOLUME 9.3 fL (7.4-11.0); MONOCYTES # (AUTO) 0.9 x10^3/uL (0.3-0.8); MONOCYTES % (AUTO) 14.7 % (0.0-13.0); NEUTROPHILS # (AUTO) 3.9 x10^3/uL (2.2-4.8); NEUTROPHILS % (AUTO) 64.5 % (42.0-75.0); RED BLOOD COUNT 3.45 X10^6/uL (3.5-5.4); RED CELL DISTRIBUTION WIDTH 14.1 % (11.6-16.5)
[2021-12-23 06:41] LABS: ALANINE AMINOTRANSFERASE 11 Units/L (12-78); ALBUMIN 2.4 g/dL (3.4-5.0); ALKALINE PHOSPHATASE 56 Units/L (46-116); ASPARTATE AMINO TRANSFERASE 16 Units/L (15-37); BLOOD UREA NITROGEN 12 mg/dL (7-18); CALCIUM 7.4 mg/dL (8.5-10.1); CARBON DIOXIDE 31.3 mmol/L (21-32); CHLORIDE 102 mmol/L (98-107); COR CA(FOR HYPOALB) 8.7 mg/dL (8.5-10.1); COR NA(FOR HYPERGLY) 141 mmol/L (136-145); CREATININE 0.87 mg/dL (0.55-1.02); SODIUM 138 mmol/L (136-145); eGFR NON BLACK RACES > 60 (>60)
[2021-12-23] MEDS: PULMICORT NEB TX 0.5 MG NEB SCH ×2 (08:20→21:00)
[2021-12-23 09:12] LABS: ABG BASE EXCESS 9.4 mmol/L (-2.0-2.0)
[2021-12-23 09:14] LABS: ABG ALLEN TEST POS; ABG HCO3 35.7 mmol/L (22-26)
[2021-12-23] MEDS: LEVAQUIN PREMIX IV 500 MG 500 MG/100 ML BAG IV SCH (09:35)
[2021-12-23] MEDS: LIPITOR TAB 40 MG PO SCH (09:36)
[2021-12-23] MEDS: LOVENOX INJ 40 MG SYR SC SCH (09:36)
[2021-12-23] MEDS: NEURONTIN CAP 300 MG PO SCH ×2 (09:36→22:02)
[2021-12-23] MEDS: ASPIRIN EC 81 MG PO SCH (09:36)
[2021-12-23] MEDS: COREG TAB 6.25 MG PO SCH ×2 (09:36→22:02)
[2021-12-23] MEDS: CARDIZEM CD 240 MG 24-HR PO SCH (09:36)
[2021-12-23] MEDS: ROBITUSSIN DM PO SCH ×4 (09:36→22:01)
[2021-12-23] MEDS: TRADJENTA PO SCH (09:37)
[2021-12-23] MEDS: ROCEPHIN VIAL 1 GRAM 1 G in NS 100 ML IV 100 ML IV SCH (11:04)
[2021-12-23] MEDS: XOPENEX 1.25 MG/3 ML NEBULE NEB SCH ×2 (12:00→17:10)
[2021-12-23] MEDS ORDERED: NS 100 ML IV 100 ML ONE (12:05)
[2021-12-23] MEDS: LASIX PO SCH (18:21)
[2021-12-23] MEDS: PLAVIX PO SCH (22:02)
[2021-12-24] MEDS: XOPENEX 1.25 MG/3 ML NEBULE NEB SCH ×3 (02:45→12:53)
[2021-12-24] MEDS ORDERED: XOPENEX 1.25 MG/3 ML NEBULE NEB ONE (03:50)
[2021-12-24 05:48] LABS: ABG BASE EXCESS 9.8 mmol/L (-2.0-2.0)
[2021-12-24 05:49] LABS: ABG ALLEN TEST POS; ABG HCO3 34.9 mmol/L (22-26)
[2021-12-24] MEDS ORDERED: TYLENOL 325 MG TAB PO PRN (06:03)
--- NOTE | 2021-12-24 06:47 | RAD ---
HISTORYFollow-up COVID-19STUDYChest AP [id number]/11/2022FINDINGSThe heart is enlarged. No definite congestive heart failure is noted. The lungs are free of acute infiltrates. No pleural effusions are identified. The small right upper lobe infiltrate described on the prior examination is no longer identified. Bony thorax is unremarkable.IMPRESSIONContinued cardiomegaly without congestive heart failureNo definite infiltrates identified on today's examinationElectronically signed by: PRO BORGES (Dec 24, 2021 06:46:39)
[2021-12-24] MEDS: PULMICORT NEB TX 0.5 MG NEB SCH (08:08)
[2021-12-24] MEDS: XOPENEX 1.25 MG/3 ML NEBULE NEB PRN (08:08)
[2021-12-24] MEDS: ROCEPHIN VIAL 1 GRAM 1 G in NS 100 ML IV 100 ML IV SCH (08:09)
[2021-12-24] MEDS: ASPIRIN EC 81 MG PO SCH (10:00)
[2021-12-24] MEDS: CARDIZEM CD 240 MG 24-HR PO SCH (10:00)
[2021-12-24] MEDS: COREG TAB 6.25 MG PO SCH (10:01)
[2021-12-24] MEDS: ROBITUSSIN DM PO SCH ×2 (10:01→14:17)
[2021-12-24] MEDS: LIPITOR TAB 40 MG PO SCH (10:01)
[2021-12-24] MEDS: LASIX PO SCH (10:01)
[2021-12-24] MEDS: LEVAQUIN PREMIX IV 500 MG 500 MG/100 ML BAG IV SCH (10:01)
[2021-12-24] MEDS: NEURONTIN CAP 300 MG PO SCH (10:01)
[2021-12-24] MEDS: LOVENOX INJ 40 MG SYR SC SCH (10:02)
[2021-12-24] MEDS: TRADJENTA PO SCH (10:33)
[2021-12-24 11:52] VITALS: BP 131/63
--- NOTE | 2021-12-24 15:44 | CT ---
HISTORYSEVERE MS AND ; UTI, WEAKNESSSTUDYCTA, ABDOMEN/PELVIS W WOCOMPARISONTECHNIQUECT imaging was performed through the abdomen and pelvis both before and after the intravenous administration of iodinated contrast. Axial, coronal, and sagittal images were generated as well as coronal and sagittal and 3D MIPS images. Dose reduction techniques including Automated Exposure Control (AEC) and adjustment of mA and kV were utilized.FINDINGSWithout contrast: There are no stones in the kidneys on either side. There is fairly severe coronary and systemic atherosclerosis. There is some mild interstitial prominence in the lung bases suggestive of interstitial lung disease. There is some bronchial wall thickening in the bases as well as atelectasis and scarring. There is a small pericardial effusion.With contrast: There is dilation of the main trunk at 3.7 cm indicating pulmonary artery hypertension but no evidence of pulmonary embolus. The liver is grossly normal. The gallbladder, pancreas, spleen, adrenal glands, and kidneys are normal. There is a small hiatal hernia. Small bowel loops are normal. There is no evidence for appendicitis. There is diverticulosis of the distal colon beginning at the splenic flexure. There is some mild inflammation in the fat near the sigmoid colon suggesting some mild sigmoid diverticulitis. There is also some trace free fluid in the cul-de-sac. Urinary bladder is normal. The uterus has been removed. There are degenerative changes in the spine. 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 There is plaque at the origin of the SMA but no significant obstruction. There is approximately 40 percent narrowing at the origin of the left renal artery due to heterogeneous plaque. There is mild hard plaque in the infrarenal aorta and in the common iliac arteries. There is heterogeneous plaque in the bilateral internal iliac arteries.IMPRESSION1. 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 Approximately 40 percent stenosis at the origin of the left renal artery.3. Diverticulosis of the distal colon with some low-grade diverticular inflammation in the sigmoid colon.4. 3.7 cm ectasia of the the pulmonary trunk suggesting pulmonary artery hypertension.Electronically signed by: Baron Singh (Dec 24, 2021 15:42:52)
== END 2021-12-24 15:10 | disposition home or self-care (01) | DRG 177 ==
LOC: MED/SURG 07:19 → ER 07:19 → MED/SURG 10:30
PROVIDERS: ADMIT Internal Medicine; ATTEND Internal Medicine
DX: I50.9 Heart failure, unspecified; I25.10 Atherosclerotic heart disease of native coronary artery without angina pectoris; R06.02 Shortness of breath; N39.0 Urinary tract infection, site not specified; K44.9 Diaphragmatic hernia without obstruction or gangrene; J12.82 Pneumonia due to coronavirus disease 2019; R41.82 Altered mental status, unspecified; E11.65 Type 2 diabetes mellitus with hyperglycemia; R94.31 Abnormal electrocardiogram [ECG] [EKG]; R55 Syncope and collapse; R53.1 Weakness; I11.0 Hypertensive heart disease with heart failure; U07.1 COVID-19; B96.29 Other Escherichia coli [E. coli] as the cause of diseases classified elsewhere; R77.8 Other specified abnormalities of plasma proteins

== ENCOUNTER 2022-02-06 04:40 | Inpatient (IN) ==
[2022-02-06 04:58] VITALS: BMI 25.2
--- NOTE | 2022-02-06 04:59 | DR.CP ---
HPI Time Seen Time Seen by Provider: 02/06/22 04:58 PCP Primary Care Physician: RONNA HPI Comment HPI Comment: An 82 y/o female presents with SOB and chest pain. This had started about 2100 hrs last night. She didn't come to the ED sooner as she thought that the symptoms would resolve. She can't describe the pain - only saying that it hurts. The pain goes to her back. She admits to nausea but no diaphoresis or palpitations. Complaint Chief Complaint:: PT CALLED EMS FOR SHORTNESS OF BREATH AND CHEST PAIN THAT IS MIDSTERNAL AND RADIATES THROUGH TO HER BACK. COVID-19 Coronavirus symptoms experienced: Shortness of Breath Reviewed Nurses Notes Review: Yes Source History Provided: Patient and EMS Mode of Arrival Mode of Arrival: EMS Timing Onset of Chief Complaint: 02/06/22 Came on: Gradually Pain: Present Now Location Location of Chest Pain: Chest Chest Pain Radiation Location: Back Context Onset: At rest Cardiac Risk Factors: Hyperlipidemia, HTN and Diabetes PE Risk Factors: None History of: OR and Angioplasty Prehospital Care: Oxygen and ASA Severity Severity: Moderate Modifying Factors Worsens: Exertion Impoves: Nothing PMH PMH Past Medical History: Yes Past Medical History: Arthritis, CHF, Coronary Artery Disease, Diabetes, Dyslipidemia, Hypertension and OR Past Surgical History: Yes Surgical History: Angioplasty/Stents, Appendectomy, Hysterectomy and Tonsillectomy Family History History of Family Medical Conditions: Yes Family Medical History: Cancer and OR Social History Does patient currently use any type of tobacco product: No Have you used tobacco products in the last 12 months: No Type of Tobacco Use: None Does any household member use tobacco: No Alcohol Use: None Do you use any recreational Drugs:: No Lives With: Family Lives Where: Home Infectious screening In the last 2 months have you had wt loss of >10#?: NO Have you had fever, night sweats or hemotysis?: No Have you traveled outside the country in the last 6 months?: No Isolation: Standard ROS Review of Systems Constitutional: No Symptoms Reported Eyes: No Symptoms Reported ENTM: No Symptoms Reported Respiratoy: Short of Breath Cardiovascular: See HPI and Chest Pain Gastrointestinal/Abdominal: Nausea Genitourinary: No Symptoms Reported Neurological: No Symptoms Reported Musculoskeletal: No Symptoms Reported Integumentary: No Symptoms Reported Hematologic/Lymphatic: No Symptoms Reported Endocrine: No Symptoms Reported Psychiatric: No Symptoms Reported All Other Systems: Reviewed and Negative PE Vitals Vitals: Temperature 98.6 F Pulse Rate 111 Respiratory Rate 34 Blood Pressure [Right Arm] 131/63 Blood Pressure 132/63 O2 Sat by Pulse Oximetry 96 General Limitations: No Limitations General Appearance: Alert and In No Apparent Distress Head Head Exam: Normal Inspection, Atraumatic and Normocephalic Eyes Eye exam: Normal Appearance and EOMI ENT ENT Exam: Normal Exam, Normal Oropharynx, Normal External Ear Exam and Mucous Membranes Moist Chest Chest Inspection: Normal Inspection and Symmetric Chest Wall Rise Respiratory Respiratory Exam: Normal Lung Sounds Bilat Cardiovascular Cardiovascular Exam: Normal Rhythm, Tachycardia, Normal Heart Sounds, +S1 and +S2 Pulse: Normal Edema: Normal Abdominal Exam Abdominal Exam: Normal Inspection, Normal Bowel Sounds and Soft Extremities Extremities Exam: Normal Inspection and Full ROM Back Back Exam: Normal Inspection and Full ROM Neurologic Neurological Exam: Alert and Oriented X3 Psychiatric Psychiatric Exam: Normal Affect and Normal Mood Skin Skin Exam: Dry, Intact and Normal Color COURSE Treatment Treatment: Her test results were reviewed her and her family. I spoke with [facility] PCP (Dr. Monterroso), he agrees to place her in-house. Reevaluation 1st: Improved Consultation Consultation Comments: Name: KAYLIE LEON [facility]#: [id number]: [id number]: 1940Sex: FLocation: EROrder Number(s): [id number](s):CTA, CHEST Ordering Physician: TOM ESPANA Primary Care: [facility] Service Date: 02/06/22 Service Time: 0630 HISTORY Chest pain, elevated D-dimer STUDY CTA chest with contrast for pulmonary embolus Technique: Axial post-contrast images with coronal and sagittal reformats. Dose reduction procedures were used with mA/kv adjusted for body size. COMPARISON 12/21/2021 FINDINGS There is no evidence for acute pulmonary thromboembolic disease. Examination of the mediastinum demonstrated no evidence for mediastinal masses, enlarged mediastinal or enlarged hilar adenopathy or significant aortic abnormality. Extensive coronary artery calcifications are present. The heart is enlarged. Bilateral very small pleural effusions are identified. No chest wall or axillary abnormality is identified. Those portions of the upper abdominal organs visualized were within normal limits but only to the limitations of early arterial injection timing. Diffuse thoracic spondylosis is present. Examination of the lung kimball demonstrated no significant nodules, masses, alveolar infiltrates, areas of consolidation, peribronchial thickening, or bronchiectasis. IMPRESSION No evidence for acute pulmonary thromboembolic disease Lungs free of acute infiltrates Cardiomegaly without congestive heart failure Bilateral very small pleural effusions Extensive coronary artery calcifications Electronically signed by: PRO BORGES (Feb 06, 2022 07:33:40) Report Electronically signed: 02/06/22 0735 CC: Tom Espana Education/Counseling Education/Counseling: Patient, Family, Education and Counseling Educated On: Treatment, Diagnosis, Prognosis and Needs for Follow Up ROR Labs Reviewed Result Diagrams: 02/06/22 04:56 02/06/22 04:56 Laboratory: WBC 15.5 X10^3/uL (3.6-10.0) H 02/06/22 04:56 RBC 3.74 X10^6/uL (3.5-5.4) 02/06/22 04:56 Hgb 11.3 g/dL (12.0-16.0) L 02/06/22 04:56 Hct 33.9 % (36.0-47.0) L 02/06/22 04:56 MCV 90.5 fL (80.0-100.0) 02/06/22 04:56 MCH 30.1 pg (27.0-34.0) 02/06/22 04:56 MCHC 33.2 g/dL (33.0-35.0) 02/06/22 04:56 RDW 15.2 % (11.6-16.5) 02/06/22 04:56 Plt Count 299 X10^3/uL (150.0-450.0) 02/06/22 04:56 MPV 9.3 fL (7.4-11.0) 02/06/22 04:56 Neut % (Auto) 72.0 % (42.0-75.0) 02/06/22 04:56 Lymph % (Auto) 19.4 % (21.0-51.0) L 02/06/22 04:56 [place] % (Auto) 6.5 % (0.0-13.0) 02/06/22 04:56 Eos % (Auto) 0.7 % (0.9-2.9) L 02/06/22 04:56 Baso % (Auto) 1.4 % (0.2-1.0) H 02/06/22 04:56 Neut # (Auto) 11.2 x10^3/uL (2.2-4.8) H 02/06/22 04:56 Lymph # (Auto) 3.0 X10^3/uL (1.3-2.9) H 02/06/22 04:56 [place] # (Auto) 1.0 x10^3/uL (0.3-0.8) H 02/06/22 04:56 Eos # (Auto) 0.1 x10^3/uL (0.0-0.2) 02/06/22 04:56 Baso # (Auto) 0.2 X10^3/uL (0.0-0.1) H 02/06/22 04:56 Absolute Nucleated RBC 0.0 /100WBC 02/06/22 04:56 PT 13.1 SECONDS (11.8-14.3) 02/06/22 04:56 INR Target Range - 02/06/22 04:56 INR 1.02 (0.8-1.3) 02/06/22 04:56 APTT 27.1 SECONDS (22.9-36.5) 02/06/22 04:56 PTT Comment - 02/06/22 04:56 D-Dimer 1.66 ug/ml (0.0-0.57) H 02/06/22 04:56 Sodium 142 mmol/L (136-145) 02/06/22 04:56 Corrected Sodium 146 mmol/L (136-145) H 02/06/22 04:56 Potassium 4.7 mmol/L (3.5-5.1) 02/06/22 04:56 Chloride 106 mmol/L (98-107) 02/06/22 04:56 Carbon Dioxide 27.5 mmol/L (21-32) 02/06/22 04:56 BUN 23 mg/dL (7-18) H 02/06/22 04:56 Creatinine 0.88 mg/dL (0.55-1.02) 02/06/22 04:56 Est GFR (MDRD) Af Amer > 60 (>60) 02/06/22 04:56 Est GFR (MDRD) Non-Af > 60 (>60) 02/06/22 04:56 Glucose 278 mg/dL (65-99) H 02/06/22 04:56 Calcium 8.7 mg/dL (8.5-10.1) 02/06/22 04:56 Corrected Calcium TNP 02/06/22 04:56 Magnesium 1.7 mg/dL (2.0-2.9) L 02/06/22 04:56 Total Bilirubin 0.60 mg/dL (0.2-1.0) 02/06/22 04:56 AST 17 Units/L (15-37) 02/06/22 04:56 ALT 18 Units/L (12-78) 02/06/22 04:56 Alkaline Phosphatase 69 Units/L (46-116) 02/06/22 04:56 Creatine Kinase 54 Units/L (26-192) 02/06/22 04:56 Troponin I High Sens 25.9 ng/L (4.0-60.0) 02/06/22 04:56 B-Natriuretic Peptide 825 pg/mL (0-79) H* 02/06/22 04:56 Total Protein 7.2 g/dL (6.4-8.2) 02/06/22 04:56 Albumin 3.5 g/dL (3.4-5.0) 02/06/22 04:56 Globulin 3.7 g/dL (2.5-4.5) 02/06/22 04:56 Albumin/Globulin Ratio 0.9 Ratio (1.1-2.1) L 02/06/22 04:56 Triglycerides 86 mg/dL (0-150) 02/06/22 04:56 Cholesterol 134 mg/dL (0-200) 02/06/22 04:56 LDL Cholesterol, Calc 56 mg/dL (0-100) 02/06/22 04:56 HDL Cholesterol 61 mg/dL (40-60) H 02/06/22 04:56 Cholesterol/HDL Ratio 2.2 (0.0-5.0) 02/06/22 04:56 TSH 3rd Generation 3.170 uIU/mL (0.358-3.74) 02/06/22 04:56 Specimen Type Clean catch urine 02/06/22 06:07 Urine Color Yellow (YELLOW) 02/06/22 06:07 Urine Appearance Clear (CLEAR) 02/06/22 06:07 Urine pH 6.0 (5.0 - 8.0) 02/06/22 06:07 Ur Specific [place] 1.010 (1.000-1.030) 02/06/22 06:07 Urine Protein 2+ (NEGATIVE) 02/06/22 06:07 Urine Glucose (UA) 2+ (NEGATIVE) 02/06/22 06:07 Urine Ketones 1+ (NEGATIVE) 02/06/22 06:07 Urine Blood 1+ (NEGATIVE) 02/06/22 06:07 Urine Nitrite Negative (NEGATIVE) 02/06/22 06:07 Urine Bilirubin Negative (NEGATIVE) 02/06/22 06:07 Urine Urobilinogen Normal (NORMAL) 02/06/22 06:07 Ur Leukocyte Esterase Negative (NEGATIVE) 02/06/22 06:07 Urine RBC 0-2 /HPF (0-3) 02/06/22 06:07 Urine WBC 0-2 /HPF (0-5) 02/06/22 06:07 Ur Squamous Epith Cells Rare /HPF (NEGATIVE) 02/06/22 06:07 Urine Bacteria Negative /HPF (NEGATIVE) 02/06/22 06:07 Hyaline Casts Few /LPF (NEGATIVE) 02/06/22 06:07 Ur Culture Indicated? No/not indicated 02/06/22 06:07 XRAY XRAY Interpreted by: Self X-ray Results: CXR: cardiomegaly with vascular congestion. No heike infiltrates noted. Radiology report is pending. EKG Rate: 115 Hoffman: Normal Rhythm: ST Block: None Hypertrophy: None ST: Normal Opioid Opioid Risk Tool Age (Graham box if 16-45): No History of Preadolescent Sexual Abuse: No Total: 0 Total Score Risk Category: Low Risk Copyright: Nawaf DAS predicting aberrant behaviors Discharge Plan Diagnosis Discharge Problem: Shortness of breath, Chest pain, Hypertensive heart disease with congestive heart failure, CAD (coronary artery disease) Discharge Plan Patient Disposition: 09 ADMITTED INPATIENT Condition: Stable Prescriptions: No Action aspirin [Aspir-81] 81 MG tablet,delayed release (DR/EC) 81 mg PO DAILY diltiazem HCl 240 MG capsule,ext.rel 24h degradable 240 mg PO DAILY metformin 500 MG tablet 500 mg PO BID ergocalciferol (vitamin D2) 1,250 mcg (50,000 unit) capsule 1,250 mcg PO WEEKLY Label Comments: TAKE 1 CAPSULE BY MOUTH EVERY WEEK atorvastatin 40 mg Tablet 40 mg PO DAILY glyburide 5 mg Tablet See Rx Instructions .ROUTE .COMPLEX Rx Instructions: 2 TABLETS PO DAILY BEFORE BREAKFAST AND 1 TABLET PO DAILY AT BEDTIME furosemide [Lasix] 20 mg Tablet 20 mg PO DAILY potassium chloride 20 mEq Tablet,Er Particles/Crystals 20 meq PO DAILY carvedilol 6.25 mg tablet 6.25 mg PO BID cetirizine 10 mg Tablet 10 mg PO HS clopidogrel 75 mg Tablet 75 mg PO HS gabapentin 300 mg Tablet 300 mg PO BID Tradjenta 5 mg Tablet 5 mg PO DAILY Health Concerns: Post Hospitalization: new medications and changes needed to prevent readmission or further decline. Pt educated and given instructions on all concerns. Plan of Treatment: Continue with present treatment and follow up plan. Pt is to keep follow up appointment as instructed and take medications as ordered. Orders to Discharge Patient Discharge Orders: Transfer (Routine); Ordered 02/06/22 Ordered By: TOM ESPANA Follow ups/Referrals Follow ups/Referrals: MANDY ROSS [Primary Care Provider] - 3 days ADDITIONAL NOTES Additional Notes Additional Notes: Name: KAYLIE LEON [facility]#: [id number]: [id number]: 1940Sex: FLocation: EROrder Number(s): [id number](s):CHEST, 1 VIEW Ordering Physician: TOM ESPANA Primary Care: Mandy Ross Service Date: 02/06/22 Service Time: 0453 PROCEDURE: Chest X-ray 1 View . HISTORY: Chest pain and dyspnea. TECHNIQUE: AP portable done at 4:53 a.m.. COMPARISON: 12/24/2021. TECHNICAL QUALITY: Left lateral costophrenic angles not included on the study. FINDINGS: Heart size upper limits of normal and unchanged. Mediastinum and hilar regions show no masses or lymphadenopathy . Normal central vascularity . No pulmonary consolidation, masses, pleural fluid, or pneumothorax. Some discoid atelectasis right base. No acute bony abnormality . IMPRESSION: 1. Unchanged heart size upper limits of normal. 2. Some discoid atelectasis right base. Electronically signed by: Raj Cordero (Feb 06, 2022 05:19:20) Report Electronically signed: 02/06/22 0521 CC: Tom Espana
[2022-02-06] MEDS ORDERED: DUONEB 0.5 MG/3 MG (3 mL) NEB ONE ×2 (05:09→05:33)
[2022-02-06 05:10] LABS: BASOPHILS # (AUTO) 0.2 X10^3/uL (0.0-0.1); BASOPHILS % (AUTO) 1.4 % (0.2-1.0); EOSINOPHILS # (AUTO) 0.1 x10^3/uL (0.0-0.2); EOSINOPHILS % (AUTO) 0.7 % (0.9-2.9); HEMATOCRIT 33.9 % (36.0-47.0); HEMOGLOBIN 11.3 g/dL (12.0-16.0); LYMPHOCYTES % (AUTO) 19.4 % (21.0-51.0); MEAN CORPUSCULAR HEMOGLOBIN 30.1 pg (27.0-34.0); MEAN CORPUSCULAR HGB CONC 33.2 g/dL (33.0-35.0); MEAN CORPUSCULAR VOLUME 90.5 fL (80.0-100.0); MEAN PLATELET VOLUME 9.3 fL (7.4-11.0); MONOCYTES % (AUTO) 6.5 % (0.0-13.0); NEUTROPHILS # (AUTO) 11.2 x10^3/uL (2.2-4.8); RED BLOOD COUNT 3.74 X10^6/uL (3.5-5.4); RED CELL DISTRIBUTION WIDTH 15.2 % (11.6-16.5); WHITE BLOOD COUNT 15.5 X10^3/uL (3.6-10.0)
[2022-02-06 05:13] LABS: INR 1.02 (0.8-1.3)
[2022-02-06] MEDS ORDERED: NITROSTAT ONE ×2 (05:13→05:23)
[2022-02-06] MEDS: NITROSTAT SL PRN ×2 (05:18→05:24)
--- NOTE | 2022-02-06 05:21 | RAD ---
PROCEDURE: Chest X-ray 1 View .HISTORY: Chest pain and dyspnea.TECHNIQUE: AP portable done at 4:53 a.m..COMPARISON: 12/24/2021.TECHNICAL QUALITY: Left lateral costophrenic angles not included on the study.FINDINGS:Heart size upper limits of normal and unchanged.Mediastinum and hilar regions show no masses or lymphadenopathy .Normal central vascularity .No pulmonary consolidation, masses, pleural fluid, or pneumothorax. Some discoid atelectasis right base.No acute bony abnormality .IMPRESSION:1. Unchanged heart size upper limits of normal.2. Some discoid atelectasis right base.Electronically signed by: Raj Cordero (Feb 06, 2022 05:19:20)
[2022-02-06 05:22] LABS: ALANINE AMINOTRANSFERASE 18 Units/L (12-78); ALBUMIN 3.5 g/dL (3.4-5.0); ALKALINE PHOSPHATASE 69 Units/L (46-116); ASPARTATE AMINO TRANSFERASE 17 Units/L (15-37); BLOOD UREA NITROGEN 23 mg/dL (7-18); CALCIUM 8.7 mg/dL (8.5-10.1); CARBON DIOXIDE 27.5 mmol/L (21-32); CHLORIDE 106 mmol/L (98-107); CHOL/HDL RATIO 2.2 (0.0-5.0); CHOLESTEROL 134 mg/dL (0-200); COR NA(FOR HYPERGLY) 146 mmol/L (136-145); CREATINE KINASE 54 Units/L (26-192); CREATININE 0.88 mg/dL (0.55-1.02); HDL CHOLESTEROL 61 mg/dL (40-60); MAGNESIUM 1.7 mg/dL (2.0-2.9); SODIUM 142 mmol/L (136-145); TOTAL PROTEIN 7.2 g/dL (6.4-8.2); TRIGLYCERIDES 86 mg/dL (0-150); eGFR NON BLACK RACES > 60 (>60)
[2022-02-06] MEDS ORDERED: ASPIRIN EC 81 MG PO ONE (05:24)
[2022-02-06] MEDS ORDERED: LASIX IVP ONE ×2 (05:32→05:35)
[2022-02-06 06:27] LABS: BILIRUBIN,URINE NEGATIVE (NEGATIVE); BLOOD/HEMOGLOBIN,URINE 1+ (NEGATIVE); GLUCOSE, URINE 2+ (NEGATIVE); KETONES,URINE 1+ (NEGATIVE); LEUKOCYTE ESTERASE ,URINE NEGATIVE (NEGATIVE); NITRITES,URINE NEGATIVE (NEGATIVE); PROTEIN,URINE 2+ (NEGATIVE); UROBILINOGEN,URINE NORMAL (NORMAL)
[2022-02-06 07:09] LABS: APPEARANCE,URINE CLEAR (CLEAR); COLOR,URINE YELLOW (YELLOW)
[2022-02-06 07:10] LABS: BACTERIA,URINE NEGATIVE /HPF (NEGATIVE); HYALINE CASTS, URINE FEW /LPF (NEGATIVE); RBC,URINE 0-2 /HPF (0-3); SQUAMOUS EPITHELIAL CELL,UR RARE /HPF (NEGATIVE)
--- NOTE | 2022-02-06 07:35 | CT ---
HISTORYChest pain, elevated D-dimerSTUDYCTA chest with contrast for pulmonary embolusTechnique: Axial post-contrast images with coronal and sagittal reformats. Dose reduction procedures were used with mA/kv adjusted for body size.[id number]/10/2022FINDINGSThere is no evidence for acute pulmonary thromboembolic disease. Examination of the mediastinum demonstrated no evidence for mediastinal masses, enlarged mediastinal or enlarged hilar adenopathy or significant aortic abnormality. Extensive coronary artery calcifications are present. The heart is enlarged. Bilateral very small pleural effusions are identified. No chest wall or axillary abnormality is identified. Those portions of the upper abdominal organs visualized were within normal limits but only to the limitations of early arterial injection timing. Diffuse thoracic spondylosis is present. Examination of the lung kimball demonstrated no significant nodules, masses, alveolar infiltrates, areas of consolidation, peribronchial thickening, or bronchiectasis.IMPRESSIONNo evidence for acute pulmonary thromboembolic diseaseLungs free of acute infiltratesCardiomegaly without congestive heart failureBilateral very small pleural effusionsExtensive coronary artery calcificationsElectronically signed by: PRO BORGES (Feb 06, 2022 07:33:40)
[2022-02-06] MEDS ORDERED: NITROSTAT SL PRN (08:03)
[2022-02-06] MEDS ORDERED: LASIX IVP SCH (09:00)
[2022-02-06] MEDS ORDERED: GLUCOPHAGE PO SCH (09:00)
[2022-02-06] MEDS ORDERED: DIABETA PO SCH (09:08)
[2022-02-06] MEDS ORDERED: K-DUR TAB 20 MEQ PO SCH (09:08)
[2022-02-06] MEDS ORDERED: ASPIRIN EC 81 MG PO SCH (09:08)
[2022-02-06] MEDS ORDERED: TRADJENTA PO SCH (09:08)
[2022-02-06] MEDS ORDERED: LIPITOR TAB 40 MG PO SCH (09:08)
[2022-02-06] MEDS ORDERED: VITAMIN D (1.25MG) PO SCH (09:08)
[2022-02-06] MEDS ORDERED: COREG TAB 6.25 MG PO SCH (09:08)
[2022-02-06 10:00] LABS: ABG ALLEN TEST POS; ABG BASE EXCESS 8.1 mmol/L (-2.0-2.0); ABG HCO3 32.8 mmol/L (22-26)
[2022-02-06] MEDS ORDERED: CARDIZEM CD 240 MG 24-HR PO SCH (10:00)
[2022-02-06] MEDS ORDERED: GLUCOPHAGE ONE (10:56)
[2022-02-06] MEDS: DUONEB 0.5 MG/3 MG (3 mL) NEB SCH ×3 (11:54→18:11)
[2022-02-06] MEDS ORDERED: NovoLIN R (or HumuLIN R) SC PRN (11:58)
--- NOTE | 2022-02-06 12:15 | DR.H&P ---
H&P - History & Physical for Day of: H&P Date: 02/06/22 - Chief Complaint Chief Complaint: CHEST PAIN - History of Present Illness History of Present Illness: An 82 y/o female presents with SOB and chest pain. This had started about 2100 hrs last night. She didn't come to the ED sooner as she thought that the symptoms would resolve. ER reports patient states can't describe the pain - only saying that it hurts. The pain goes to her back. She admits to nausea but no diaphoresis or palpitations. Pt has known CAD and CHF, DM. Pt is under the care of Dr Reynolds at [facility] in [place]. - Past Medical History Past Medical History: [place], Coronary Artery Disease, Hypertension, Dyslipidemia, Diabetes, Arthritis, CHF - Past Surgical History Surgical History: Hysterectomy, Tonsillectomy - Family History Family Medical History: Cancer - Social History Does patient currently use any type of tobacco product: No Have you used tobacco products in the last 12 months: No Type of Tobacco Use: None Does any household member use tobacco: No Alcohol Use: None Drug Use: None - Medications Home Medications: No Known Drug Allergies Allergy (Verified 02/06/22 05:00) - Review of Systems Constitutional: Malaise Eyes: No Symptoms Reported ENT: No Symptoms Reported Respiratory: Shortness of Breath Cardiovascular: Chest Pain Gastrointestinal: Nausea Genitourinary: No Symptoms Reported Musculoskeletal: Back Pain Skin: No Symptoms Reported Neurological: No Symptoms Reported - Physical Exam Vital Signs: Temperature 98.1 F Pulse Rate [Right Brachial] 113 Pulse Rate 109 Respiratory Rate 20 Blood Pressure [Right Arm] 129/74 Blood Pressure 110/60 O2 Sat by Pulse Oximetry 98 Oriented: Normal Eyes: Normal Ear: Normal Nose: Normal Throat: Normal Respiratory: RML Diminished, RLL Diminished, LML Diminished, LLL Diminished Cardiovascular: Normal : Normal Auscultation: Bowel Sounds: Normal Palpation: Normal Tenderness: Normal Skin: Decreased Turgur Musculoskeletal: Normal Psychiatric: Anxiety Affect: Anxious Speech Pattern: Clear, Appropriate - Assessment/Plan (1) Chest pain Status: Acute Plan: ADMIT, SERIAL CE AND EKG. CONTINUOUS CARDIAC MONITORING, BP CONTROL. VERIFY AND RESUME HOME MEDICATION. IV LASIX, STRICT I&OS. CTA LUNGS IN ER, RESUME HOME MEDICATIONS. SUPPLEMENTAL O2, ROOM AIR ABG COLLECTION (2) Diabetes Status: Acute (3) HTN (hypertension) Status: Chronic (4) CHF (congestive heart failure) Status: Acute (5) CAD (coronary artery disease) Status: Acute - Allergies Allergies/Adverse Reactions: Allergies Allergy/AdvReac Type Severity Reaction Status Date / Time No Known Drug Allergies Allergy Verified 02/06/22 05:00
[2022-02-06] MEDS ORDERED: HEPARIN SODIUM IN D5W 25,000 UNITS/500 ML BAG IV PRN (14:36)
[2022-02-06] MEDS ORDERED: HEPARIN SODIUM INJ 5000 UNITS IVP ONE (15:30)
[2022-02-06 15:44] LABS: INR 1.01 (0.8-1.3)
[2022-02-06 16:15] VITALS: BP 100/55
[2022-02-06] MEDS ORDERED: SNACK - Diabetic Appropriate PO SCH (20:00)
[2022-02-06] MEDS ORDERED: NEURONTIN CAP 300 MG PO SCH (21:00)
[2022-02-06] MEDS ORDERED: ZyrTEC TAB 10 MG PO SCH (21:00)
[2022-02-06] MEDS ORDERED: PLAVIX PO SCH (21:00)
== END 2022-02-06 16:00 | disposition short-term general hospital (02) | DRG 293 ==
LOC: ER 04:40 → MED/SURG 04:40 → OBSVTOIN 07:55 → MED/SURG 08:57 → ICU 14:38
PROVIDERS: ADMIT Internal Medicine; ATTEND Internal Medicine
DX: R07.89 Other chest pain; R94.30 Abnormal result of cardiovascular function study, unspecified; J44.9 Chronic obstructive pulmonary disease, unspecified; R79.1 Abnormal coagulation profile; I11.0 Hypertensive heart disease with heart failure; R94.31 Abnormal electrocardiogram [ECG] [EKG]; E11.65 Type 2 diabetes mellitus with hyperglycemia; R06.02 Shortness of breath; I25.2 Old myocardial infarction; I25.10 Atherosclerotic heart disease of native coronary artery without angina pectoris; I50.9 Heart failure, unspecified

== ENCOUNTER 2024-11-07 08:32 | Inpatient (IN) ==
[2024-11-07 09:06] LABS: MEAN PLATELET VOLUME 10.4 fL (7.4-11.0); RED CELL DISTRIBUTION WIDTH 14.8 % (11.6-16.5)
[2024-11-07 09:17] LABS: COR CA(FOR HYPOALB) 9.7 mg/dL (8.5-10.1); COR NA(FOR HYPERGLY) 142.0 mmol/L (136-145); CREATININE 1.71 mg/dL (0.55-1.02); eGFR NON BLACK RACES 30.0 (>60)
[2024-11-07 09:51] LABS: BLOOD/HEMOGLOBIN,URINE 1+ (NEGATIVE); LEUKOCYTE ESTERASE ,URINE 1+ (NEGATIVE); NITRITES,URINE NEGATIVE (NEGATIVE)
[2024-11-07 09:57] LABS: APPEARANCE,URINE SLIGHTLY HAZY (CLEAR)
[2024-11-07 10:02] LABS: SQUAMOUS EPITHELIAL CELL,UR RARE /HPF (NEGATIVE)
--- NOTE | 2024-11-07 10:30 | CT ---
EXAMINATION: ABDOMEN/PELVIS W/O CON HISTORY: pt states that she has been having abdominal pain since October 14 after a fall. The pain is in her upper abdomen all the way across and does not radiate anywhere.; . COMPARISON: CTA abdomen and pelvis 12/23/2021 TECHNIQUE: Unenhanced axial images were obtained through the abdomen and pelvis using renal stone protocol. Reformatted images were obtained as well. Lack of oral and IV contrast limits diagnostic sensitivity The above CT scan was done with automated exposure control and the mA and kV was adjusted to obtain quality images according to patient size. FINDINGS: Lung bases: Multi-vessel coronary artery calcification. Cardiomegaly. Interstitial changes in the lung bases. No acute findings. Mitral annulus calcification. Liver: Multiple liver lesions are noted. The largest of these are in the right lobe measuring 10.2 x 6.2 cm and 7.1 x 5.3 cm. While there is history of trauma these lesions favor metastatic disease or multifocal hepatoma. GB/Biliary: No gallstones or dilated ducts Spleen: Normal size and density. Extensive vascular calcification along the splenic hilum Pancreas: No acute findings. No pseudocyst or dilated duct. Evaluation limited by lack of contrast. There is excessive respiratory motion. Adrenal Glands: No mass Kidneys: No obstructing stone, hydronephrosis or solid lesion. Abdominal aorta: Normal diameter. Atherosclerotic calcification is present. Retroperitoneum: No pathologically enlarged lymph nodes. Bowel: There is moderate ascites. There is anasarca. There are peritoneal lesions diffusely suggesting metastatic disease. This would favor a dye box operator or GI cancer. No obvious thickened or dilated loops of bowel, free air, pneumatosis or abscess. No CT evidence of appendicitis obstruction or diverticulitis. Appendix not definitely visualized Bladder/: Ureters and bladder unremarkable. No obvious pelvic or adnexal mass noted. Osseous: Multilevel degenerative changes. Minimal grade 1 spondylolisthesis at L4-5. No acute findings or bony lesions. IMPRESSION: There are multiple hepatic lesions. The largest or in the right lobe of the liver. While there is a history of trauma these lesions favor metastatic disease or hepatoma. Particularly with the ascites and peritoneal lesions. There is moderate ascites and multiple peritoneal implants. This may represent a dye box operator or GI neoplasm. No obvious source is seen. Evaluation limited by lack of contrast. Consider PET-CT scan. No gross CT evidence for appendicitis, diverticulitis or obstruction. Appendix not definitely visualized. No inflammatory change in the right lower quadrant. No obvious pelvic or adnexal mass noted. THIS IS AN ELECTRONICALLY VERIFIED FINAL REPORT 11/07/2024 10:27 AM - Electronically signed by Kris Balderrama MD
[2024-11-07] MEDS: ZOSYN VIAL 3.375 GRAMS 3.375 G in NS 100 ML IV 100 ML IV ONE (10:52)
--- NOTE | 2024-11-07 11:05 | EKG ---
Test Reason : short of breath Blood Pressure : */* mmHG Vent. Rate : 108 BPM Atrial Rate : 108 BPM P-R Int : 134 ms QRS Dur : 88 ms QT Int : 342 ms P-R-T Axes : 41 -56 100 degrees QTc Int : 458 ms Sinus tachycardia with premature atrial complexes Left axis deviation Low voltage QRS Cannot rule out Anteroseptal infarct (cited on or before 20-AUG-2022) Abnormal ECG When compared with ECG of 31-AUG-2022 03:23, premature atrial complexes are now present Confirmed by Matt Solano MD ([id number]) on 11/08/2024 7:19:40 AM Referred By: Confirmed By: Matt Solano MD
--- NOTE | 2024-11-07 12:41 | CT ---
EXAMINATION: CHEST W/O CON HISTORY: SOB ; . COMPARISON: CT angio chest 02/06/2022. CT abdomen and pelvis 11/07/2024 TECHNIQUE: Routine axial imaging of the chest was performed. Lack of IV contrast limits sensitivity. The above CT scan was done with automated exposure control and the mA and kV was adjusted to obtain quality images according to patient size. FINDINGS: Lungs: There is bronchial thickening. Scattered patchy areas of atelectasis. Stable 6 mm nodule in the left upper lobe. No new acute infiltrates, suspicious pulmonary nodules interstitial changes or ground-glass opacities Central Airways: No obstructing endobronchial lesions Pleura: No pleural effusion or pneumothorax Thoracic Aorta: Tapers normally. Atherosclerotic calcification Main Pulmonary Trunk: Normal diameter Lymph Nodes: No pathologic hilar, axillary or mediastinal adenopathy Heart/Pericardium: Normal heart size. No significant pericardial effusion. Three-vessel coronary artery disease. Liver: See CT abdomen and pelvis report GB/Biliary: See CT abdomen and pelvis report Spleen: See CT abdomen and pelvis report Pancreas: No acute findings as visualized Adrenal Glands: No mass Kidneys no hydronephrosis. Abdominal Aorta: Tapers normally Retroperitoneum: No pathologic lymphadenopathy Bowel/Peritoneal Cavity: No acute findings as visualized Osseous Structures: Multilevel degenerative changes in the spine. No acute findings or bony lesions. Other: None IMPRESSION: No acute findings in the chest. Stable 6 mm pulmonary nodule in the left upper lobe. Bronchial thickening. See associated CT abdomen and pelvis report regarding abdomen The above CT scan was done with automated exposure control and the mA and kV was adjusted to obtain quality images according to patient size THIS IS AN ELECTRONICALLY VERIFIED FINAL REPORT 11/07/2024 12:37 PM - Electronically signed by Kris Balderrama MD
--- NOTE | 2024-11-07 14:13 | ED.ABDFE ---
HPI Time Seen Time Seen by Provider: 11/07/24 09:45 PCP Primary Care Physician: FAYE Tomas HPI Comment HPI Comment: Patient with abdominal pains on and off since October 14 after she had a fall. Patient states she has upper abdominal pain. Patient is on 2 L nasal cannula at home due to CHF and COPD. Patient states she feels at baseline as far as her breathing is concerned. Denies fever Complaint Chief Complaint:: pt states that she has been having abdominal pain since October 14 after a fall. The pain is in her upper abdomen all the way across and does not radiate anywhere. she also c/o nausea and constipation but had a bm yesterday COVID-19 Coronavirus risk:travel/contact w/high risk person: No Has patient experienced Coronavirus symptoms: No Source History Provided: Patient Mode of arrival Mode of Arrival: Wheelchair Timing Onset of Chief Complaint: 10/14/24 PMH PMH Past Medical History: Yes Past Medical History: Arthritis, CHF, COPD, Coronary Artery Disease, Diabetes, Dyslipidemia, Hypertension and SD Past Surgical History: Yes Surgical History: Angioplasty/Stents, Appendectomy, Hysterectomy, Ortho Surgery and Tonsillectomy Past Surgical History Comment: cataracts, right shoulder Family History History of Family Medical Conditions: Yes Family Medical History: Diabetes Mellitus, Cancer, SD and Heart Failure Social History Does patient currently use any type of tobacco product: No Have you used tobacco products in the last 12 months: No Type of Tobacco Use: None Alcohol Use: None Do you use any recreational Drugs:: No Lives With: Family Lives Where: Home Travel Risk Coronavirus risk:travel/contact w/high risk person: No Has patient experienced Coronavirus symptoms: No Infectious screening Have you traveled outside the country in the last 6 months?: No Isolation: Standard ROS Review of Systems Constitutional: No Symptoms Reported Eyes: No Symptoms Reported ENTM: No Symptoms Reported Respiratoy: No Symptoms Reported Cardiovascular: No Symptoms Reported Gastrointestinal/Abdominal: See HPI Genitourinary: No Symptoms Reported Neurological: No Symptoms Reported Musculoskeletal: No Symptoms Reported Integumentary: No Symptoms Reported Hematologic/Lymphatic: No Symptoms Reported Endocrine: No Symptoms Reported Psychiatric: No Symptoms Reported All Other Systems: Reviewed and Negative PE Vital Signs Vitals: Vital Signs Temperature 97.6 F Pulse Rate 109 Pulse Rate 112 Pulse Rate 104 Pulse Rate 104 Pulse Rate 104 Pulse Rate 120 Pulse Rate 111 Pulse Rate 108 Pulse Rate 106 Pulse Rate 102 Pulse Rate 102 Pulse Rate 101 Pulse Rate 101 Pulse Rate 102 Pulse Rate 108 Pulse Rate 107 Pulse Rate 104 Pulse Rate 104 Pulse Rate 103 Pulse Rate 108 Pulse Rate 108 Pulse Rate 108 Pulse Rate 106 Pulse Rate 105 Pulse Rate 114 Pulse Rate 118 Pulse Rate 111 Respiratory Rate 19 Respiratory Rate 28 Respiratory Rate 20 Respiratory Rate 22 Respiratory Rate 20 Respiratory Rate 43 Respiratory Rate 33 Respiratory Rate 22 Respiratory Rate 19 Respiratory Rate 24 Respiratory Rate 35 Respiratory Rate 22 Respiratory Rate 24 Respiratory Rate 21 Respiratory Rate 22 Respiratory Rate 20 Respiratory Rate 20 Respiratory Rate 33 Respiratory Rate 36 Respiratory Rate 22 Respiratory Rate 18 Respiratory Rate 21 Respiratory Rate 27 Respiratory Rate 32 Respiratory Rate 24 Respiratory Rate 27 Blood Pressure 109/54 Blood Pressure 107/52 Blood Pressure 113/53 Blood Pressure 114/56 Blood Pressure 115/53 Blood Pressure 109/49 Blood Pressure 144/63 Blood Pressure 108/52 Blood Pressure 106/53 Blood Pressure 106/55 Blood Pressure 104/51 Blood Pressure 104/51 Blood Pressure 137/65 Blood Pressure 137/65 O2 Sat by Pulse Oximetry 99 O2 Sat by Pulse Oximetry 100 O2 Sat by Pulse Oximetry 100 O2 Sat by Pulse Oximetry 100 O2 Sat by Pulse Oximetry 100 O2 Sat by Pulse Oximetry 99 O2 Sat by Pulse Oximetry 100 O2 Sat by Pulse Oximetry 100 O2 Sat by Pulse Oximetry 92 O2 Sat by Pulse Oximetry 88 O2 Sat by Pulse Oximetry 96 O2 Sat by Pulse Oximetry 100 O2 Sat by Pulse Oximetry 100 O2 Sat by Pulse Oximetry 100 O2 Sat by Pulse Oximetry 100 O2 Sat by Pulse Oximetry 99 O2 Sat by Pulse Oximetry 99 O2 Sat by Pulse Oximetry 99 O2 Sat by Pulse Oximetry 98 O2 Sat by Pulse Oximetry 98 O2 Sat by Pulse Oximetry 98 O2 Sat by Pulse Oximetry 98 O2 Sat by Pulse Oximetry 98 O2 Sat by Pulse Oximetry 97 O2 Sat by Pulse Oximetry 97 O2 Sat by Pulse Oximetry 97 General Limitations: No Limitations and Language Barrier General Appearance: Alert and In No Apparent Distress Head Head Exam: Normal Inspection Eyes Eye exam: Normal Appearance ENT ENT Exam: Normal Exam Neck Neck Exam: Normal Inspection Chest Chest Inspection: Normal Inspection Respiratory Respiratory Exam: Normal Lung Sounds Bilat Cardiovascular Cardiovascular Exam: Regular Rate and Normal Rhythm Abdominal Exam Abdominal Exam: Normal Inspection, Normal Bowel Sounds, Soft and Tenderness (Tender generalized upper abdomen); negative Distention, Guarding, Rebound, Rigidity or Ascites Rectal Rectal Exam: Deferred Back Back Exam: Normal Inspection Extremeties Extremities Exam: Normal Inspection Neurologic Neurological Exam: Alert and Oriented X3 Psychiatric Psychiatric Exam: Normal Affect and Normal Mood Skin Skin Exam: Warm, Dry and Intact COURSE Treatment Treatment: Discussed results of workup with patient and family. Patient is suspicious lesions on her liver. Patient states she wants to be comfort measures and is not going to undergo any surgeries or procedures. Patient refused transfer. Patient agreeable to only treat UTI in the hospital at this time. Consultation Consultation Comments: Discussed case with Dr. Monterroso and he is agreeable to admission [facility] Labs Reviewed 11/07/24 08:58 11/07/24 08:58 Laboratory: WBC 17.8 X10^3/uL (3.6-10.0) H 11/07/24 08:58 RBC 3.89 X10^6/uL (3.5-5.4) 11/07/24 08:58 Hgb 11.4 g/dL (12.0-16.0) L 11/07/24 08:58 Hct 35.8 % (36.0-47.0) L 11/07/24 08:58 MCV 92.2 fL (80.0-100.0) 11/07/24 08:58 MCH 29.4 pg (27.0-34.0) 11/07/24 08:58 MCHC 31.9 g/dL (33.0-35.0) L 11/07/24 08:58 RDW 14.8 % (11.6-16.5) 11/07/24 08:58 Plt Count 292 X10^3/uL (150.0-450.0) 11/07/24 08:58 MPV 10.4 fL (7.4-11.0) 11/07/24 08:58 Neut % (Auto) 84.7 % (42.0-75.0) H 11/07/24 08:58 Lymph % (Auto) 6.0 % (21.0-51.0) L 11/07/24 08:58 [place] % (Auto) 8.9 % (0.0-13.0) 11/07/24 08:58 Eos % (Auto) 0.0 % (0.9-2.9) L 11/07/24 08:58 Baso % (Auto) 0.4 % (0.2-1.0) 11/07/24 08:58 Neut # (Auto) 15.1 x10^3/uL (2.2-4.8) H 11/07/24 08:58 Lymph # (Auto) 1.1 X10^3/uL (1.3-2.9) L 11/07/24 08:58 [place] # (Auto) 1.6 x10^3/uL (0.3-0.8) H 11/07/24 08:58 Eos # (Auto) 0.0 x10^3/uL (0.0-0.2) 11/07/24 08:58 Baso # (Auto) 0.1 X10^3/uL (0.0-0.1) 11/07/24 08:58 Absolute Nucleated RBC 0.0 /100WBC 11/07/24 08:58 Sodium 139 mmol/L (136-145) 11/07/24 08:58 Corrected Sodium 142 mmol/L (136-145) 11/07/24 08:58 Potassium 4.4 mmol/L (3.5-5.1) 11/07/24 08:58 Chloride 100 mmol/L (98-107) 11/07/24 08:58 Carbon Dioxide 30.4 mmol/L (21-32) 11/07/24 08:58 BUN 69 mg/dL (7-18) H 11/07/24 08:58 Creatinine 1.71 mg/dL (0.55-1.02) H 11/07/24 08:58 Est GFR (MDRD) Af Amer 36 (>60) L 11/07/24 08:58 Est GFR (MDRD) Non-Af 30 (>60) L 11/07/24 08:58 Glucose 236 mg/dL (65-99) H 11/07/24 08:58 Lactic Acid 1.1 mmol/L (0.4-2.0) 11/07/24 09:55 Calcium 8.5 mg/dL (8.5-10.1) 11/07/24 08:58 Corrected Calcium 9.7 mg/dL (8.5-10.1) 11/07/24 08:58 Total Bilirubin 0.60 mg/dL (0.2-1.0) 11/07/24 08:58 AST 32 Units/L (15-37) 11/07/24 08:58 ALT 24 Units/L (12-78) 11/07/24 08:58 Alkaline Phosphatase 169 Units/L (46-116) H 11/07/24 08:58 Troponin I High Sens 25.1 ng/L (4.0-60.0) 11/07/24 10:50 B-Natriuretic Peptide 916 pg/mL (0-79) H 11/07/24 08:58 Total Protein 6.8 g/dL (6.4-8.2) 11/07/24 08:58 Albumin 2.5 g/dL (3.4-5.0) L 11/07/24 08:58 Globulin 4.3 g/dL (2.5-4.5) 11/07/24 08:58 Albumin/Globulin Ratio 0.6 Ratio (1.1-2.1) L 11/07/24 08:58 Amylase 22 Units/L (25-115) L 11/07/24 08:58 Lipase 20 Units/L (16-77) 11/07/24 08:58 Specimen Type Catherized urine 11/07/24 09:10 Urine Color Yellow (YELLOW) 11/07/24 09:10 Urine Appearance Slightly hazy (CLEAR) 11/07/24 09:10 Urine pH 5.0 (5.0 - 8.0) 11/07/24 09:10 Ur Specific [place] 1.025 (1.000-1.030) 11/07/24 09:10 Urine Protein 2+ (NEGATIVE) 11/07/24 09:10 Urine Glucose (UA) 4+ (NEGATIVE) 11/07/24 09:10 Urine Ketones Negative (NEGATIVE) 11/07/24 09:10 Urine Blood 1+ (NEGATIVE) 11/07/24 09:10 Urine Nitrite Negative (NEGATIVE) 11/07/24 09:10 Urine Bilirubin 1+ (NEGATIVE) 11/07/24 09:10 Urine Urobilinogen Normal (NORMAL) 11/07/24 09:10 Ur Leukocyte Esterase 1+ (NEGATIVE) 11/07/24 09:10 Urine RBC 3-5 /HPF (0-3) A 11/07/24 09:10 Urine WBC 10-20 /HPF (0-5) A 11/07/24 09:10 Ur Squamous Epith Cells Rare /HPF (NEGATIVE) 11/07/24 09:10 Amorphous Sediment 1+ /HPF (NEGATIVE) 11/07/24 09:10 Urine Bacteria 1+ /HPF (NEGATIVE) 11/07/24 09:10 Granular Casts Numerous /LPF (NEGATIVE) 11/07/24 09:10 Urine Mucus Few /HPF (NEGATIVE) 11/07/24 09:10 Ur Culture Indicated? Yes/culture set up 11/07/24 09:10 Opioid Opioid Risk Tool Age (Graham box if 16-45): No History of Preadolescent Sexual Abuse: No Total: 0 Total Score Risk Category: Low Risk Copyright: [facility] predicting aberrant behaviors Discharge Plan Diagnosis Discharge Problem: UTI (urinary tract infection), CHF (congestive heart failure), Hepatic lesion Acute renal failure (ARF) Qualifiers: Acute renal failure type: unspecified Qualified Code(s): N17.9 - Acute kidney failure, unspecified Discharge Plan Patient Disposition: ADMITTED INPATIENT Condition: Stable Prescriptions: No Action metformin 500 MG tablet 500 mg PO BID potassium chloride 20 mEq Tablet,Er Particles/Crystals 20 meq PO DAILY Rx Instructions: Take one tablet daily with Lasix furosemide 40 mg tablet 40 mg PO QDAY cetirizine 10 mg tablet 10 mg PO QHS gabapentin 100 mg capsule 200 mg PO QHS ergocalciferol (vitamin D2) [Vitamin D2] 1,250 mcg (50,000 unit) capsule 1,250 mcg PO QWEEK albuterol sulfate 90 mcg/actuation HFA aerosol inhaler 2 puff inhalation QID Jardiance 25 mg tablet 25 mg PO QDAY aspirin 81 mg Tablet 81 mg PO QDAY metoprolol succinate 50 mg Tablet Extended Release 24 Hr 50 mg PO QDAY nitroglycerin 0.4 mg Tablet, Sublingual 0.4 mg SUBLINGUAL Q5-15M PRN Rx Instructions: do not exceed 3 doses per episode Health Concerns: Post Hospitalization: new medications and changes needed to prevent readmission or further decline. Pt educated and given instructions on all concerns. Plan of Treatment: Continue with present treatment and follow up plan. Pt is to keep follow up appointment as instructed and take medications as ordered. Orders to Discharge Patient Discharge Orders: Transfer (Routine); Ordered 11/07/24 Ordered By: Ravinder Tucker Follow ups/Referrals Follow ups/Referrals: JERROD PALMA [Primary Care Provider, MEDICAL] - 3 days Instructions Stand Alone Forms: Find Help Web Site, Post Hospital Follow Up Care Print Language: HONG KONGER
[2024-11-07] MEDS ORDERED: NORCO 5/325 MG TAB PO PRN (14:26)
[2024-11-07] MEDS ORDERED: ZOFRAN TAB 4 MG PO PRN (14:26)
[2024-11-07] MEDS ORDERED: NITROSTAT SL PRN (14:26)
[2024-11-07] MEDS ORDERED: CONSULT PHARMACY - POTASSIUM & MAGNESIUM XX SCH (15:00)
[2024-11-07] MEDS: NS 1,000 ML IV 1,000 ML IV ONE (15:05)
[2024-11-07] MEDS: NS 1,000 ML IV 1,000 ML ONE (15:16)
--- NOTE | 2024-11-07 15:17 | RAD ---
EXAM: Left shoulder four views HISTORY: Left shoulder pain COMPARISON: None FINDINGS: Bones are osteopenic. Visualized portion of the clavicle, AC joint, scapula, proximal humerus, and left upper ribs are intact. IMPRESSION: Osteopenia No other significant findings THIS IS AN ELECTRONICALLY VERIFIED FINAL REPORT 11/07/2024 3:14 PM - Electronically signed by Aaron Ortiz MD
[2024-11-07 15:30] VITALS: BMI 25.5
[2024-11-07] MEDS ORDERED: PROVENTIL NEB TX 0.083% 2.5MG/ 3ML NEB SCH (17:00)
[2024-11-07] MEDS ORDERED: VENTOLIN or PROAIR HFA IN SCH (17:00)
[2024-11-07] MEDS: SNACK - Diabetic Appropriate PO SCH (21:34)
[2024-11-07] MEDS: NEURONTIN CAP 100 MG PO SCH (21:35)
[2024-11-07] MEDS: NovoLIN R (or HumuLIN R) SUBCUT PRN (21:36)
[2024-11-07] MEDS: TYLENOL 325 MG TAB PO PRN (22:19)
[2024-11-08 05:25] LABS: MEAN PLATELET VOLUME 10.3 fL (7.4-11.0); RED CELL DISTRIBUTION WIDTH 14.4 % (11.6-16.5)
[2024-11-08 05:42] LABS: COR CA(FOR HYPOALB) 9.7 mg/dL (8.5-10.1); COR NA(FOR HYPERGLY) 140.0 mmol/L (136-145); CREATININE 1.83 mg/dL (0.55-1.02); eGFR NON BLACK RACES 28.0 (>60)
[2024-11-08] MEDS: ASPIRIN EC 81 MG PO SCH (08:30)
[2024-11-08] MEDS: K-DUR TAB 20 MEQ PO SCH (08:31)
[2024-11-08] MEDS: LASIX PO SCH (08:31)
[2024-11-08] MEDS: TOPROL XL PO SCH (08:31)
[2024-11-08] MEDS ORDERED: PHARMACY CONSULT XX SCH (09:00)
--- NOTE | 2024-11-08 10:03 | RAD ---
EXAM: CHEST, 1 VIEW HISTORY: CHF, COPD; CAD, HTN, DM, CHF SX: HYST, TONSILS COMPARISON: 09/10/2022 TECHNIQUE: AP portable FINDINGS: Stable cardiac silhouette. Chronic mildly prominent interstitial lung markings. Prominent skin folds over the upper left hemithorax. No new areas of consolidation. No large pleural effusion or visible pneumothorax. IMPRESSION: No acute cardiopulmonary findings. THIS IS AN ELECTRONICALLY VERIFIED FINAL REPORT 11/08/2024 9:59 AM - Electronically signed by Hank Paula MD
[2024-11-08] MEDS: ZOSYN VIAL 3.375 GRAMS 3.375 G in NS 100 ML IV 100 ML IV SCH (11:27)
--- NOTE | 2024-11-08 13:24 | DR.H&P ---
H&P History & Physical for Day of: H&P Date: 11/07/24 Chief Complaint Chief Complaint: RIGHT ABDOMINAL PAIN, SOB, WEAKNESS History of Present Illness History of Present Illness: PT IS 84 WF, ER ADMISSION WITH CO INTRACTABLE RIGHT SIDE ABDOMINAL PAIN SINCE A TRAUMATIC FALL ON October. PT CO DIARRHEA ONSET AROUND THE TIME OF FALL. PT HAS BEEN PRETTY MUCH BED AND HOME CONFINED SINCE FALL. PT HAS PMH OF CHF, CAD, COPD, HTN, AND DM. ON ER ADMISSION PT HAD ABNORMAL CT OF ABD, UTI AND DEHYDRATION. PT ADMITTED FOR EVALUATION AND TREATMENT OF ACUTE ILLNESS. Past Medical History Past Medical History: Arthritis, CHF, COPD, Coronary Artery Disease, Diabetes, Dyslipidemia, Hypertension and [place] Past Surgical History Surgical History: Angioplasty/Stents, Appendectomy, Hysterectomy and Tonsillectomy Family History Family Medical History: Cancer and Heart Failure Social History Does patient currently use any type of tobacco product: No Have you used tobacco products in the last 12 months: No Type of Tobacco Use: None Does any household member use tobacco: No Alcohol Use: None Drug Use: None Medications Home Medications: Home Medications Medication Instructions Recorded Confirmed Type metformin 500 mg tablet 500 mg PO BID 11/04/1611/07 History potassium chloride 20 mEq 20 meq PO DAILY 12/01/19 History tablet,extended release(part/cryst) albuterol sulfate 90 mcg/actuation 2 puff inhalation Q ID 11/07/24 11/07/24 History aerosol inhaler aspirin 81 mg tablet 81 mg PO QDAY 11/07/2411/07 History cetirizine 10 mg tablet 10 mg PO QHS 11/07/24 History empagliflozin 25 mg tablet 25 mg PO QDAY 11/07/2410/12 History (Jardiance) ergocalciferol (vitamin D2) 1,250 1,250 mcg PO QWEEK 0 11/07/24 11/07/24 History mcg (50,000 unit) capsule (Vitamin D2) furosemide 40 mg tablet 40 mg PO QDAY 11/07/2411/07 History gabapentin 100 mg capsule 200 mg PO QHS 11/07/2411/07 History metoprolol succinate 50 mg 50 mg PO QDAY 11/07/2410/12 History tablet,extended release 24 hr nitroglycerin 0.4 mg sublingual 0.4 mg sublingual Q5-1 5M PRN 11/07/24 11/07/24 History tablet Allergies Allergies Allergy/AdvReac Type Severity Reaction Status Date / Time No Known Drug Allergies Allergy Verified 11/07/24 08:42 Labs 11/08/24 05:11 11/08/24 05:11 Labs: 11/07/24 09:10 U Bag Urine Culture - Preliminary Laboratory WBC 18.9 X10^3/uL (3.6-10.0) H 11/08/24 05:11 RBC 3.57 X10^6/uL (3.5-5.4) 11/08/24 05:11 Hgb 10.5 g/dL (12.0-16.0) L 11/08/24 05:11 Hct 32.6 % (36.0-47.0) L 11/08/24 05:11 MCV 91.4 fL (80.0-100.0) 11/08/24 05:11 MCH 29.5 pg (27.0-34.0) 11/08/24 05:11 MCHC 32.3 g/dL (33.0-35.0) L 11/08/24 05:11 RDW 14.4 % (11.6-16.5) 11/08/24 05:11 Plt Count 223 X10^3/uL (150.0-450.0) 11/08/24 05:11 MPV 10.3 fL (7.4-11.0) 11/08/24 05:11 Neut % (Auto) 86.4 % (42.0-75.0) H 11/08/24 05:11 Lymph % (Auto) 4.2 % (21.0-51.0) L 11/08/24 05:11 [place] % (Auto) 8.8 % (0.0-13.0) 11/08/24 05:11 Eos % (Auto) 0.1 % (0.9-2.9) L 11/08/24 05:11 Baso % (Auto) 0.5 % (0.2-1.0) 11/08/24 05:11 Neut # (Auto) 16.3 x10^3/uL (2.2-4.8) H 11/08/24 05:11 Lymph # (Auto) 0.8 X10^3/uL (1.3-2.9) L 11/08/24 05:11 [place] # (Auto) 1.7 x10^3/uL (0.3-0.8) H 11/08/24 05:11 Eos # (Auto) 0.0 x10^3/uL (0.0-0.2) 11/08/24 05:11 Baso # (Auto) 0.1 X10^3/uL (0.0-0.1) 11/08/24 05:11 Absolute Nucleated RBC 0.0 /100WBC 11/08/24 05:11 Sodium 138 mmol/L (136-145) 11/08/24 05:11 Corrected Sodium 140 mmol/L (136-145) 11/08/24 05:11 Potassium 4.6 mmol/L (3.5-5.1) 11/08/24 05:11 Chloride 103 mmol/L (98-107) 11/08/24 05:11 Carbon Dioxide 31.0 mmol/L (21-32) 11/08/24 05:11 BUN 74 mg/dL (7-18) H 11/08/24 05:11 Creatinine 1.83 mg/dL (0.55-1.02) H 11/08/24 05:11 Est GFR (MDRD) Af Amer 34 (>60) L 11/08/24 05:11 Est GFR (MDRD) Non-Af 28 (>60) L 11/08/24 05:11 Glucose 202 mg/dL (65-99) H 11/08/24 05:11 POC Glucose (mg/dL) 194 mg/dL (65-99) H 11/08/24 11:27 Lactic Acid 1.1 mmol/L (0.4-2.0) 11/07/24 09:55 Calcium 8.2 mg/dL (8.5-10.1) L 11/08/24 05:11 Corrected Calcium 9.7 mg/dL (8.5-10.1) 11/08/24 05:11 Total Bilirubin 0.40 mg/dL (0.2-1.0) 11/08/24 05:11 AST 33 Units/L (15-37) 11/08/24 05:11 ALT 22 Units/L (12-78) 11/08/24 05:11 Alkaline Phosphatase 134 Units/L (46-116) H 11/08/24 05:11 Troponin I High Sens 25.1 ng/L (4.0-60.0) 11/07/24 10:50 B-Natriuretic Peptide 856 pg/mL (0-79) H 11/08/24 05:11 Total Protein 5.9 g/dL (6.4-8.2) L 11/08/24 05:11 Albumin 2.1 g/dL (3.4-5.0) L 11/08/24 05:11 Globulin 3.8 g/dL (2.5-4.5) 11/08/24 05:11 Albumin/Globulin Ratio 0.6 Ratio (1.1-2.1) L 11/08/24 05:11 Amylase 22 Units/L (25-115) L 11/08/24 05:11 Lipase 19 Units/L (16-77) 11/08/24 05:11 Specimen Type Catherized urine 11/07/24 09:10 Urine Color Yellow (YELLOW) 11/07/24 09:10 Urine Appearance Slightly hazy (CLEAR) 11/07/24 09:10 Urine pH 5.0 (5.0 - 8.0) 11/07/24 09:10 Ur Specific Kimball 1.025 (1.000-1.030) 11/07/24 09:10 Urine Protein 2+ (NEGATIVE) 11/07/24 09:10 Urine Glucose (UA) 4+ (NEGATIVE) 11/07/24 09:10 Urine Ketones Negative (NEGATIVE) 11/07/24 09:10 Urine Blood 1+ (NEGATIVE) 11/07/24 09:10 Urine Nitrite Negative (NEGATIVE) 11/07/24 09:10 Urine Bilirubin 1+ (NEGATIVE) 11/07/24 09:10 Urine Urobilinogen Normal (NORMAL) 11/07/24 09:10 Ur Leukocyte Esterase 1+ (NEGATIVE) 11/07/24 09:10 Urine RBC 3-5 /HPF (0-3) A 11/07/24 09:10 Urine WBC 10-20 /HPF (0-5) A 11/07/24 09:10 Ur Squamous Epith Cells Rare /HPF (NEGATIVE) 11/07/24 09:10 Amorphous Sediment 1+ /HPF (NEGATIVE) 11/07/24 09:10 Urine Bacteria 1+ /HPF (NEGATIVE) 11/07/24 09:10 Granular Casts Numerous /LPF (NEGATIVE) 11/07/24 09:10 Urine Mucus Few /HPF (NEGATIVE) 11/07/24 09:10 Ur Culture Indicated? Yes/culture set up 11/07/24 09:10 Review of Systems Constitutional: Weakness Eyes: No Symptoms Reported ENT: No Symptoms Reported Respiratory: Shortness of Breath Cardiovascular: Edema Gastrointestinal: Nausea and Abdominal Pain Genitourinary: Frequency Musculoskeletal: Arm Pain, Back Pain and Leg Pain (LEFT HIP) Skin: No Symptoms Reported Neurological: Weakness Physical Exam Vital Signs: Vital Signs Temperature 97.6 F Temperature 97.3 F Pulse Rate [Right Radial] 91 Pulse Rate [Right Radial] 94 Respiratory Rate 19 Respiratory Rate 19 Blood Pressure [Right Arm] 114/53 Blood Pressure [Right Arm] 99/54 O2 Sat by Pulse Oximetry 97 O2 Sat by Pulse Oximetry 96 Oriented: Normal Eyes: Normal Ear: Normal Nose: Normal Throat: Normal Respiratory: Diminished Throughout Cardiovascular: Edema Auscultation: Bowel Sounds: Normal Palpation: Normal Tenderness: Diffuse, RUQ and RLQ Skin: Decreased Turgur Musculoskeletal: Back:Thoracic, Back:Lumbar and Swelling Psychiatric: Anxiety Mood Description: Anxious Speech Pattern: Clear and Appropriate Assessment/Plan (1) UTI (urinary tract infection): Status: Acute Plan: ADMIT, PAIN CONTROL BS CONTROL, BP CONTROL IV ATBX, UC CA 125, CT WAS WITHOUT CONTRAST DUE TO GFR, RESP THERAPY (2) Hepatic lesion: Status: Acute (3) MADHAVI (acute kidney injury): Status: Acute (4) CAD (coronary artery disease): Status: Acute (5) CHF (congestive heart failure): Status: Acute (6) Abdominal pain due to injury: Status: Acute
--- NOTE | 2024-11-08 18:46 | RAD ---
EXAMINATION: HIP, LEFT HISTORY: fell; CAD, HTN, DM, CHF SX: HYST, TONSILS . COMPARISON STUDY: None. TECHNIQUE: Three views left hip FINDINGS: Left hip joint is uniformly maintained. No evidence of acute traumatic displaced fracture or dislocation of the hip. Soft tissue outlines appear intact. IMPRESSION: No acute bony process seen about the left hip. THIS IS AN ELECTRONICALLY VERIFIED FINAL REPORT 11/08/2024 6:43 PM - Electronically signed by Charisma Reyes MD
[2024-11-08] MEDS: ULTRAM PO PRN (20:33)
[2024-11-08] MEDS: NS 250 ML IV 25 ML IV PRN (20:35)
[2024-11-09 05:49] LABS: MEAN PLATELET VOLUME 10.0 fL (7.4-11.0); RED CELL DISTRIBUTION WIDTH 14.8 % (11.6-16.5)
[2024-11-09 06:06] LABS: COR CA(FOR HYPOALB) 9.6 mg/dL (8.5-10.1); COR NA(FOR HYPERGLY) 141.0 mmol/L (136-145); CREATININE 2.4 mg/dL (0.55-1.02); eGFR NON BLACK RACES 20.0 (>60)
[2024-11-09 06:19] LABS: PLATELET MORPHOLOGY COMMENT NORMAL (NORMAL)
[2024-11-09] MEDS: ROCEPHIN VIAL 1 GRAM 1 G in NS 100 ML IV 100 ML IV SCH (09:55)
[2024-11-09] MEDS ORDERED: NS 1,000 ML IV 1,000 ML ONE (16:58)
[2024-11-09] MEDS: NS 1,000 ML IV 1,000 ML IV SCH (17:00)
[2024-11-09] MEDS: MORPHINE SULFATE INJ 2 MG INJ IVP PRN (20:15)
[2024-11-09] MEDS ORDERED: ZOSYN VIAL 3.375 GRAMS 3.375 G in NS 100 ML IV 100 ML IV SCH (21:00)
[2024-11-10 06:03] LABS: COR CA(FOR HYPOALB) 9.6 mg/dL (8.5-10.1); COR NA(FOR HYPERGLY) 138.0 mmol/L (136-145); CREATININE 3.18 mg/dL (0.55-1.02); eGFR NON BLACK RACES 15.0 (>60)
[2024-11-10 06:04] LABS: MEAN PLATELET VOLUME 9.6 fL (7.4-11.0); RED CELL DISTRIBUTION WIDTH 15.1 % (11.6-16.5)
[2024-11-10 06:22] LABS: PLATELET MORPHOLOGY COMMENT NORMAL (NORMAL)
--- NOTE | 2024-11-10 07:48 | RAD ---
EXAMINATION: CHEST, 1 VIEW HISTORY: R/O PNEUMONIA ; CHF, COPD, CAD, DM, HTN, ID SX: ANGIO/STENTS, APPY, HYST, ORTHO, TONSILS, CATARACTS, RIGHT SHOULDER . COMPARISON STUDY: 11/08/2024 TECHNIQUE: One view FINDINGS: Cardiomegaly is present. No acute infiltrates. Interstitial infiltrates are unchanged. No pneumothorax. Pleural fluid or thickening along the minor fissure. Hilar and mediastinal structures and bony structures unchanged. Poor inspiration. EKG leads and oxygen tubing project over the chest. Atherosclerotic calcification within thoracic aorta IMPRESSION: No new acute infiltrates. Interstitial infiltrates similar to the prior study. Rule out interstitial edema THIS IS AN ELECTRONICALLY VERIFIED FINAL REPORT 11/10/2024 7:45 AM - Electronically signed by Kris Balderrama MD
[2024-11-10] MEDS: LASIX IVP SCH (09:56)
[2024-11-10 17:05] VITALS: BP 80/53
[2024-11-10 20:26] VITALS: PULSE 64; RESP 21; TEMP 97.9; O2SAT 96
== END 2024-11-11 06:30 | disposition expired | DRG 689 ==
LOC: MED/SURG 08:32 → ER 08:32 → MED/SURG 14:47
PROVIDERS: ADMIT Internal Medicine; ATTEND Internal Medicine
DX: R53.1 Weakness; Z16.11 Resistance to penicillins; M25.552 Pain in left hip; K76.89 Other specified diseases of liver; I50.9 Heart failure, unspecified; R10.84 Generalized abdominal pain; R00.0 Tachycardia, unspecified; R19.7 Diarrhea, unspecified; R62.7 Adult failure to thrive; I25.10 Atherosclerotic heart disease of native coronary artery without angina pectoris; J18.8 Other pneumonia, unspecified organism; Z65.8 Other specified problems related to psychosocial circumstances; B96.1 Klebsiella pneumoniae [K. pneumoniae] as the cause of diseases classified elsewhere; M25.512 Pain in left shoulder; Z99.81 Dependence on supplemental oxygen; Z66 Do not resuscitate; R97.0 Elevated carcinoembryonic antigen [CEA]; N17.8 Other acute kidney failure; J44.9 Chronic obstructive pulmonary disease, unspecified; R94.31 Abnormal electrocardiogram [ECG] [EKG]; Z95.5 Presence of coronary angioplasty implant and graft; R26.89 Other abnormalities of gait and mobility; F32.89 Other specified depressive episodes; I11.0 Hypertensive heart disease with heart failure; M85.812 Other specified disorders of bone density and structure, left shoulder; I25.2 Old myocardial infarction; R06.02 Shortness of breath; Z59.86 Financial insecurity; Z91.81 History of falling; E78.5 Hyperlipidemia, unspecified; E11.65 Type 2 diabetes mellitus with hyperglycemia; N39.0 Urinary tract infection, site not specified